=== PATIENT | male | born 1990 | race American Indian/Alaskan Native ===

== ENCOUNTER 2022-05-16 16:40 | Inpatient (IN) | payer OTHER ==
[2022-05-16] MEDS ORDERED: MORPHINE 4 MG/1 ML INJ IV ONE ×3 (17:40→21:48)
[2022-05-16] MEDS ORDERED: SODIUM CHLORIDE 0.9% 500 ML 500 ML IV ONE (17:40)
[2022-05-16] MEDS ORDERED: ONDANSETRON 4 MG/2 ML INJ IV ONE (17:40)
--- NOTE | 2022-05-16 17:40 | XRay Report ---
CHEST 2 VIEWS INDICATION / CLINICAL INFORMATION: Chest Pain. COMPARISON: None available. FINDINGS: SUPPORT DEVICES: None. HEART / MEDIASTINUM: No significant abnormality. LUNGS / PLEURA: No significant pulmonary or pleural abnormality. No pneumothorax. ADDITIONAL FINDINGS: No significant additional findings. IMPRESSION: 1. No acute findings. Signer Name: Aubrey Tinoco MD Signed: 05/16/2022 5:36 PM Workstation Name: [id number]
--- NOTE | 2022-05-16 17:43 | Emergency Department Report ---
ED Chest Pain HPI - General Chief Complaint: Chest Pain Stated Complaint: CHEST PAIN Time Seen by Provider: 05/16/22 17:08 Source: patient Mode of arrival: Ambulatory Limitations: No Limitations - History of Present Illness Initial Comments: 31-year-old male with no significant past medical surgical history presents to the hospital complaining of mid sharp chest pain, nausea, vomiting, and diarrhea for "a few days". Patient having active nausea and vomiting with diaphoresis at time of my evaluation. Chest pain is moderate at this time. Patient complains of mild generalized abdominal pain. Pt denies headache. He denies fever and presents significantly hypertensive - Related Data Allergies Allergy/AdvReac Type Severity Reaction Status Date / Time haloperidol [From Haldol] Allergy Unknown Verified 05/16/22 17:56 Heart Score - HEART Score History: Slightly suspicious EKG: Normal Age: < 45 Risk factors: 1-2 risk factors Troponin: < normal limit HEART Score: 1 - EKG Read Time Time EKG Completed: 18:13 EKG Read Time: 18:15 ED Review of Systems ROS: Stated complaint: CHEST PAIN Other details as noted in HPI Comment: All other systems reviewed and negative ED Past Medical Hx - Past Medical History Previous Medical History?: No - Surgical History Past Surgical History?: No ED Physical Exam - General Limitations: No Limitations - Other Other exam information: General: ill appearing Head: Atraumatic Eyes: normal appearance ENT: Moist mucous membranes Neck: Normal appearance, no midline tenderness Chest: Clear to auscultation bilaterally CV: Regular rate and rhythm Abdomen: Soft, normal bowel sounds, mild generalized tenderness. active vomiting Back: Normal inspection Extremity: Normal inspection, full range of motion Neuro: Alert O x 3, no facial asymmetry, speech clear, no gross motor sensory deficit Skin: Diaphoresis ED Course Vital Signs 05/16/22 05/16/22 05/16/22 16:51 17:51 18:28 Temperature 98.5 F 97.8 F Pulse Rate 86 79 75 Respiratory 18 20 Rate Blood Pressure 214/143 197/149 Blood Pressure 214/149 214/143 [Left] O2 Sat by Pulse 99 99 Oximetry 05/16/22 05/16/22 05/16/22 19:15 20:15 20:30 Temperature Pulse Rate 80 79 81 Respiratory 18 18 18 Rate Blood Pressure Blood Pressure 216/142 249/160 214/142 [Left] O2 Sat by Pulse 99 98 98 Oximetry 05/16/22 05/16/22 05/16/22 21:10 21:40 22:15 Temperature Pulse Rate 86 86 80 Respiratory 18 18 18 Rate Blood Pressure Blood Pressure 188/130 203/134 202/140 [Left] O2 Sat by Pulse 98 98 98 Oximetry 05/16/22 05/16/22 05/16/22 22:20 22:25 22:30 Temperature Pulse Rate 84 80 93 H Respiratory 18 18 18 Rate Blood Pressure Blood Pressure 202/135 208/130 188/107 [Left] O2 Sat by Pulse 98 98 99 Oximetry 05/16/22 05/16/22 05/16/22 22:35 22:40 22:45 Temperature Pulse Rate 93 H 96 H 95 H Respiratory 18 18 18 Rate Blood Pressure Blood Pressure 170/98 159/105 166/108 [Left] O2 Sat by Pulse 99 98 98 Oximetry 05/16/22 05/16/22 05/16/22 22:50 22:55 22:58 Temperature Pulse Rate 97 H 98 H 101 H Respiratory 18 18 18 Rate Blood Pressure Blood Pressure 156/99 150/100 171/111 [Left] O2 Sat by Pulse 98 98 99 Oximetry 05/16/22 05/16/22 05/17/22 23:07 23:30 00:00 Temperature Pulse Rate 103 H 106 H 132 H Respiratory 18 18 18 Rate Blood Pressure Blood Pressure 184/125 197/132 212/131 [Left] O2 Sat by Pulse 99 99 99 Oximetry 05/17/22 05/17/22 05/17/22 00:35 00:50 01:00 Temperature Pulse Rate 140 H 130 H 134 H Respiratory 18 18 18 Rate Blood Pressure Blood Pressure 219/128 206/134 190/130 [Left] O2 Sat by Pulse 99 99 99 Oximetry 05/17/22 05/17/22 05/17/22 01:10 01:25 01:45 Temperature Pulse Rate 137 H 131 H 121 H Respiratory 18 18 18 Rate Blood Pressure Blood Pressure 164/111 222/154 193/130 [Left] O2 Sat by Pulse 99 99 100 Oximetry 05/17/22 05/17/22 05/17/22 02:00 02:15 02:20 Temperature Pulse Rate 116 H 109 H 110 H Respiratory 18 18 18 Rate Blood Pressure Blood Pressure 193/121 182/111 195/120 [Left] O2 Sat by Pulse 99 99 100 Oximetry 05/17/22 05/17/22 05/17/22 02:30 02:45 06:30 Temperature Pulse Rate 105 H 101 H 101 H Respiratory 18 18 18 Rate Blood Pressure Blood Pressure 191/109 191/105 165/101 [Left] O2 Sat by Pulse 99 99 99 Oximetry 05/17/22 05/17/22 05/17/22 06:42 07:58 08:00 Temperature Pulse Rate 99 H 93 H 96 H Respiratory 18 21 19 Rate Blood Pressure Blood Pressure 151/105 [Left] O2 Sat by Pulse 99 95 99 Oximetry 05/17/22 05/17/22 05/17/22 08:16 08:38 08:45 Temperature Pulse Rate 115 H 99 H 94 H Respiratory 15 19 24 Rate Blood Pressure 160/105 175/107 Blood Pressure [Left] O2 Sat by Pulse 97 92 90 Oximetry 05/17/22 05/17/22 05/17/22 09:01 09:15 09:31 Temperature Pulse Rate 97 H 97 H Respiratory 17 20 Rate Blood Pressure 179/114 176/118 188/122 Blood Pressure [Left] O2 Sat by Pulse 92 90 95 Oximetry 05/17/22 05/17/22 05/17/22 09:45 10:01 10:15 Temperature Pulse Rate Respiratory Rate Blood Pressure 158/112 174/114 181/136 Blood Pressure [Left] O2 Sat by Pulse 90 92 95 Oximetry 05/17/22 05/17/22 05/17/22 10:31 10:45 11:01 Temperature Pulse Rate Respiratory Rate Blood Pressure 143/104 159/108 167/114 Blood Pressure [Left] O2 Sat by Pulse 85 95 95 Oximetry 05/17/22 05/17/22 05/17/22 11:15 11:31 11:45 Temperature Pulse Rate Respiratory Rate Blood Pressure 166/119 157/103 174/113 Blood Pressure [Left] O2 Sat by Pulse 95 96 96 Oximetry 05/17/22 05/17/22 05/17/22 12:13 12:15 12:31 Temperature Pulse Rate Respiratory 10 L 17 15 Rate Blood Pressure Blood Pressure [Left] O2 Sat by Pulse 96 94 97 Oximetry 05/17/22 05/17/22 05/17/22 12:45 13:01 13:15 Temperature Pulse Rate 84 Respiratory 24 8 L 19 Rate Blood Pressure 212/140 212/140 179/110 Blood Pressure [Left] O2 Sat by Pulse 96 95 95 Oximetry 05/17/22 05/17/22 05/17/22 13:31 13:45 14:01 Temperature Pulse Rate 85 82 85 Respiratory 21 18 15 Rate Blood Pressure 148/92 152/102 152/97 Blood Pressure [Left] O2 Sat by Pulse 95 92 93 Oximetry 05/17/22 05/17/22 05/17/22 14:15 14:31 16:01 Temperature Pulse Rate 87 85 Respiratory 22 22 Rate Blood Pressure 158/104 172/114 220/150 Blood Pressure [Left] O2 Sat by Pulse 94 95 93 Oximetry 05/17/22 05/17/22 05/17/22 16:15 16:31 16:45 Temperature Pulse Rate Respiratory Rate Blood Pressure 195/142 206/137 204/142 Blood Pressure [Left] O2 Sat by Pulse 97 94 90 Oximetry 05/17/22 05/17/22 05/17/22 17:01 17:15 17:31 Temperature Pulse Rate Respiratory Rate Blood Pressure 183/130 183/130 173/120 Blood Pressure [Left] O2 Sat by Pulse 92 97 94 Oximetry 05/17/22 05/17/22 05/17/22 17:45 18:01 18:15 Temperature Pulse Rate Respiratory Rate Blood Pressure 205/146 234/156 197/150 Blood Pressure [Left] O2 Sat by Pulse 93 97 93 Oximetry 05/17/22 05/17/22 05/17/22 18:31 18:45 19:01 Temperature Pulse Rate Respiratory Rate Blood Pressure 214/150 208/155 201/155 Blood Pressure [Left] O2 Sat by Pulse 95 90 93 Oximetry 05/17/22 05/17/22 05/17/22 19:15 19:31 19:36 Temperature 98.5 F Pulse Rate 78 75 Respiratory 26 H 14 Rate Blood Pressure 203/150 152/99 Blood Pressure 152/99 [Left] O2 Sat by Pulse 95 91 98 Oximetry 05/17/22 05/17/22 05/17/22 19:45 20:01 20:15 Temperature Pulse Rate 82 78 76 Respiratory 25 H 34 H 29 H Rate Blood Pressure 174/116 176/135 174/116 Blood Pressure [Left] O2 Sat by Pulse 94 94 95 Oximetry 05/17/22 05/17/22 05/17/22 20:31 20:45 21:01 Temperature Pulse Rate 80 89 80 Respiratory 27 H 11 L 10 L Rate Blood Pressure 195/141 196/138 193/138 Blood Pressure [Left] O2 Sat by Pulse 96 98 93 Oximetry 05/17/22 05/17/22 21:15 21:31 Temperature Pulse Rate 80 80 Respiratory 23 24 Rate Blood Pressure 193/138 193/138 Blood Pressure [Left] O2 Sat by Pulse 89 94 Oximetry ED Medical Decision Making - Lab Data Result diagrams: 05/17/22 05:25 05/17/22 05:25 Lab Results 05/16/22 05/16/22 05/16/22 Range/Units 16:51 17:25 17:25 WBC 8.9 (4.5-11.0) K/mm3 RBC 5.96 H (3.65-5.03) M/mm3 Hgb 16.8 H (11.8-15.2) gm/dl Hct 53.0 H (35.5-45.6) % MCV 89 (84-94) fl MCH 28 (28-32) pg MCHC 32 (32-34) % RDW 14.5 (13.2-15.2) % Plt Count 322 (140-440) K/mm3 Lymph % (Auto) 8.9 L (13.4-35.0) % [place] % (Auto) 3.0 (0.0-7.3) % Eos % (Auto) 0.0 (0.0-4.3) % Baso % (Auto) 0.4 (0.0-1.8) % Lymph # (Auto) 0.8 L (1.2-5.4) K/mm3 [place] # (Auto) 0.3 (0.0-0.8) K/mm3 Eos # (Auto) 0.0 (0.0-0.4) K/mm3 Baso # (Auto) 0.0 (0.0-0.1) K/mm3 Seg Neutrophils % 87.7 H (40.0-70.0) % Seg Neutrophils # 7.8 H (1.8-7.7) K/mm3 PT 13.0 (12.2-14.9) Sec. INR 0.89 (0.87-1.13) APTT 25.9 (24.2-36.6) Sec. Sodium (137-145) mmol/L Potassium (3.6-5.0) mmol/L Chloride (98-107) mmol/L Carbon Dioxide (22-30) mmol/L Anion Gap mmol/L BUN (9-20) mg/dL Creatinine (0.8-1.3) mg/dL Estimated GFR ml/min BUN/Creatinine Ratio % Glucose (75-100) mg/dL POC Glucose 154 H (70-105) mg/dL Calcium (8.4-10.2) mg/dL Total Bilirubin (0.1-1.2) mg/dL AST (5-40) units/L ALT (7-56) units/L Alkaline Phosphatase (35-129) units/L Troponin T (0.00-0.029) ng/mL Total Protein (6.3-8.2) g/dL Albumin (3.9-5) g/dL Albumin/Globulin Ratio % 05/16/22 Range/Units 17:25 WBC (4.5-11.0) K/mm3 RBC (3.65-5.03) M/mm3 Hgb (11.8-15.2) gm/dl Hct (35.5-45.6) % MCV (84-94) fl MCH (28-32) pg MCHC (32-34) % RDW (13.2-15.2) % Plt Count (140-440) K/mm3 Lymph % (Auto) (13.4-35.0) % [place] % (Auto) (0.0-7.3) % Eos % (Auto) (0.0-4.3) % Baso % (Auto) (0.0-1.8) % Lymph # (Auto) (1.2-5.4) K/mm3 [place] # (Auto) (0.0-0.8) K/mm3 Eos # (Auto) (0.0-0.4) K/mm3 Baso # (Auto) (0.0-0.1) K/mm3 Seg Neutrophils % (40.0-70.0) % Seg Neutrophils # (1.8-7.7) K/mm3 PT (12.2-14.9) Sec. INR (0.87-1.13) APTT (24.2-36.6) Sec. Sodium 143 (137-145) mmol/L Potassium 4.3 (3.6-5.0) mmol/L Chloride 99.4 (98-107) mmol/L Carbon Dioxide 22 (22-30) mmol/L Anion Gap 26 mmol/L BUN 11 (9-20) mg/dL Creatinine 0.8 (0.8-1.3) mg/dL Estimated GFR > 60 ml/min BUN/Creatinine Ratio 14 % Glucose 151 H (75-100) mg/dL POC Glucose (70-105) mg/dL Calcium 10.5 H (8.4-10.2) mg/dL Total Bilirubin 0.30 (0.1-1.2) mg/dL AST 21 (5-40) units/L ALT 21 (7-56) units/L Alkaline Phosphatase 93 (35-129) units/L Troponin T < 0.010 (0.00-0.029) ng/mL Total Protein 8.3 H (6.3-8.2) g/dL Albumin 5.7 H (3.9-5) g/dL Albumin/Globulin Ratio 2.2 % - EKG Data -: EKG Interpreted by [place] EKG shows normal: sinus rhythm, ST-T waves (no stemi) Rate: normal - EKG Data When compared to previous EKG there are: previous EKG unavailable - Radiology Data Radiology results: report reviewed CHEST 2 VIEWS INDICATION / CLINICAL INFORMATION: Chest Pain. COMPARISON: None available. FINDINGS: SUPPORT DEVICES: None. HEART / MEDIASTINUM: No significant abnormality. LUNGS / PLEURA: No significant pulmonary or pleural abnormality. No pneumothorax. ADDITIONAL FINDINGS: No significant additional findings. IMPRESSION: 1. No acute findings. CTA CHEST WITH CONTRAST INDICATION / CLINICAL INFORMATION: chest pain,htn, n,v, diarrhea. TECHNIQUE: Axial CT images were obtained through the chest after injection of 100 IV contrast. 3 plane MIP and/or 3D reconstructions were produced. All CT scans at this location are performed using CT dose reduction for ALARA by means of automated exposure control. COMPARISON: Chest radiograph same day. FINDINGS: PULMONARY EMBOLUS: None. THORACIC AORTA: No significant abnormality. HEART: No significant abnormality. CORONARY ARTERY CALCIFICATION: Absent -- None. MEDIASTINUM / CARISSA: Small volume soft tissue density within the anterior superior mediastinum statistically is most likely reflective of a small component of residual thymus. Small hiatal hernia with small volume distal esophageal fluid with mild thickening. PLEURA: No pleural effusion. No pneumothorax. LUNGS: No acute air space or interstitial disease. ADDITIONAL FINDINGS: None. UPPER ABDOMEN: No acute findings. SKELETAL STRUCTURES: No significant osseous abnormality. IMPRESSION: 1. No CT evidence for PTE, or acute aortic abnormality. 2. Small hiatal hernia with features supportive of mild esophageal reflux. 3. Small volume soft tissue density anterior superior mediastinum most likely reflective of a small component of residual thymus, mild nonspecific lymphadenopathy secondarily considered. CT ABDOMEN AND PELVIS WITH CONTRAST INDICATION / CLINICAL INFORMATION: chest pain,htn, n,v, diarrhea. TECHNIQUE: Axial CT images were obtained through the abdomen and pelvis after IV contrast. All CT scans at this location are performed using CT dose reduction for ALARA by means of automated exposure control. COMPARISON: None available. FINDINGS: LIVER: No significant abnormality. GALLBLADDER: No significant abnormality. BILE DUCTS: No significant abnormality. PANCREAS: No significant abnormality. SPLEEN: No significant abnormality. ADRENALS: No significant abnormality. RIGHT KIDNEY / URETER: No significant abnormality. LEFT KIDNEY / URETER: No significant abnormality. STOMACH / SMALL BOWEL: Small hiatal hernia with trace distal esophageal fluid. COLON: Mild mural thickening involving the transverse colon potentially accentuated by only partial distention. APPENDIX: No significant abnormality. PERITONEUM: No free fluid. No free air. No fluid collection. LYMPH NODES: No significant adenopathy. AORTA / ARTERIES: No significant abnormality. IVC / VEINS: No significant abnormality. URINARY BLADDER: No significant abnormality. REPRODUCTIVE ORGANS: No significant abnormality. ADDITIONAL FINDINGS: None. SKELETAL SYSTEM: No significant abnormality. IMPRESSION: 1. Possible mild transverse colitis, potentially artifactual the basis only partial distention. No complicating features. 2. Small hernia with features supportive of mild gastroesophageal reflux. - Medical Decision Making 31-year-old male with no known past medical history presents to the hospital with significant hypertension, chest pain, abdominal pain, nausea, and vomiting. Chest pain might be reflux related however, patient has persistent elevation in blood pressure despite IV pain medication and BP medication. Stability of psychiatric history given history of allergy to Haldol. Given that he has received Haldol in the past (listed as an allergy) I suspect patient may have some underlying psychiatric disorder. Initial troponin negative without findings of ST elevation [place]. Patient will be admitted to the hospital for hypertensive emergency (HTN + CP). At time of disposition ED work-up did not reveal NSTEMI, ST elevation [place], aortic dissection, pulmonary embolism, or acute surgical abdomen Pt continues to deny headache. cardene drip ordered Critical Care Time: Yes Critical care time in (mins) excluding proc time.: 35 Critical care attestation.: If time is entered above; I have spent that time in minutes in the direct care of this critically ill patient, excluding procedure time. Critical Care Time: 35 Minutes of critical care time excluding procedures were used in the care of the patient. I immediately evaluated patient once he was brought back to the main ED. Patient required multiple medicine intervention for pain relief and blood pressure management. Patient requiring Cardene infusion for blood pressure control. ED Disposition Clinical Impression: Chest pain, Hypertensive emergency, Nausea and vomiting, Hiatal hernia, GERD (gastroesophageal reflux disease) Disposition: ADMITTED INPATIENT Is pt being admited?: Yes Condition: Stable Time of Disposition: 21:37 (Dr. Ceron)
[2022-05-16 18:41] LABS: Basophils % (Auto) 0.4 % (0.0-1.8); Hemoglobin 16.8 gm/dl (11.8-15.2); Lymphocytes # (Auto) 0.8 K/mm3 (1.2-5.4); Lymphocytes % (Auto) 8.9 % (13.4-35.0); Mean Corpuscular HGB Conc 32 % (32-34); Mean Corpuscular Volume 89 fl (84-94); Monocytes # (Auto) 0.3 K/mm3 (0.0-0.8); Platelet Count 322 K/mm3 (140-440); Red Blood Count 5.96 M/mm3 (3.65-5.03); Red Cell Distribution Width 14.5 % (13.2-15.2)
[2022-05-16 18:49] LABS: INR 0.89 (0.87-1.13)
[2022-05-16 18:50] LABS: Partial Thromboplastin Time 25.9 Sec. (24.2-36.6)
[2022-05-16 19:02] LABS: Alanine Aminotransferase 21 units/L (7-56); Albumin 5.7 g/dL (3.9-5); BUN/Creatinine Ratio 14; Blood Urea Nitrogen 11 mg/dL (9-20); Calcium 10.5 mg/dL (8.4-10.2); Hemolysis Index 4
--- NOTE | 2022-05-16 21:14 | Cat Scan Report ---
CTA CHEST WITH CONTRAST INDICATION / CLINICAL INFORMATION: chest pain,htn, n,v, diarrhea. TECHNIQUE: Axial CT images were obtained through the chest after injection of 100 IV contrast. 3 plan e MIP and/or 3D reconstructions were produced. All CT scans at this location are performed using CT d ose reduction for ALARA by means of automated exposure control. COMPARISON: Chest radiograph same day. FINDINGS: PULMONARY EMBOLUS: None. THORACIC AORTA: No significant abnormality. HEART: No significant abnormality. CORONARY ARTERY CALCIFICATION: Absent -- None. MEDIASTINUM / CARISSA: Small volume soft tissue density within the anterior superior mediastinum statist ically is most likely reflective of a small component of residual thymus. Small hiatal hernia with sm all volume distal esophageal fluid with mild thickening. PLEURA: No pleural effusion. No pneumothorax. LUNGS: No acute air space or interstitial disease. ADDITIONAL FINDINGS: None. UPPER ABDOMEN: No acute findings. SKELETAL STRUCTURES: No significant osseous abnormality. IMPRESSION: 1. No CT evidence for PTE, or acute aortic abnormality. 2. Small hiatal hernia with features supportive of mild esophageal reflux. 3. Small volume soft tissue density anterior superior mediastinum most likely reflective of a small c omponent of residual thymus, mild nonspecific lymphadenopathy secondarily considered. CT ABDOMEN AND PELVIS WITH CONTRAST INDICATION / CLINICAL INFORMATION: chest pain,htn, n,v, diarrhea. TECHNIQUE: Axial CT images were obtained through the abdomen and pelvis after IV contrast. All CT sc ans at this location are performed using CT dose reduction for ALARA by means of automated exposure c ontrol. COMPARISON: None available. FINDINGS: LIVER: No significant abnormality. GALLBLADDER: No significant abnormality. BILE DUCTS: No significant abnormality. PANCREAS: No significant abnormality. SPLEEN: No significant abnormality. ADRENALS: No significant abnormality. RIGHT KIDNEY / URETER: No significant abnormality. LEFT KIDNEY / URETER: No significant abnormality. STOMACH / SMALL BOWEL: Small hiatal hernia with trace distal esophageal fluid. COLON: Mild mural thickening involving the transverse colon potentially accentuated by only partial d istention. APPENDIX: No significant abnormality. PERITONEUM: No free fluid. No free air. No fluid collection. LYMPH NODES: No significant adenopathy. AORTA / ARTERIES: No significant abnormality. IVC / VEINS: No significant abnormality. URINARY BLADDER: No significant abnormality. REPRODUCTIVE ORGANS: No significant abnormality. ADDITIONAL FINDINGS: None. SKELETAL SYSTEM: No significant abnormality. IMPRESSION: 1. Possible mild transverse colitis, potentially artifactual the basis only partial distention. No co mplicating features. 2. Small hernia with features supportive of mild gastroesophageal reflux. Signer Name: Gisell Harp MD Signed: 05/16/2022 9:10 PM Workstation Name: [id number]
[2022-05-16] MEDS ORDERED: FAMOTIDINE 20 MG/2 ML INJ IV ONE (21:27)
[2022-05-16] MEDS ORDERED: ASPIRIN 325 MG TAB PO ONE (21:34)
[2022-05-16] MEDS ORDERED: ACETAMINOPHEN 325 MG TAB PO PRN ×3 (21:57→23:03)
[2022-05-16] MEDS ORDERED: niCARdipine DRIP 40 MG/200 ML BAG IV ONE (21:58)
[2022-05-16] MEDS ORDERED: niCARdipine 50 MG in SODIUM CHLORIDE 0.9% 250ML 230 ML IV SCH (22:00)
[2022-05-16] MEDS ORDERED: traMADol 50 MG TAB PO PRN (22:57)
[2022-05-16] MEDS ORDERED: MORPHINE 2 MG/1 ML INJ IV PRN ×2 (23:03)
[2022-05-16] MEDS ORDERED: NITROGLYCERIN 0.4 MG TAB SUBL SL PRN (23:03)
[2022-05-16] MEDS ORDERED: MAGNESIUM HYDROXIDE (MOM) ORAL LIQD UDC PO PRN (23:03)
--- NOTE | 2022-05-16 23:12 | History and Physical Report ---
History of Present Illness Date of examination: 05/16/22 Date of admission: 05/16/2022 Chief complaint: Chest Pain History of present illness: 31-year-old -[place] male with no significant past medical history presenting to the emergency room today complaining of chest pain. Chest pain is said to be substernal and sharp. He has had associated nausea and vomiting and occasional diarrhea over the past few days. Patient denies any headache or dizziness. Has been diaphoretic. Denies any fever or chills, denies any hematuria or dysuria. Patient denies any illicit drug use. Upon arrival in the emergency room patient was found to be diaphoretic and act ively vomiting. Blood pressure was found to be elevated with systolic in the 200s and diastolic in the low 100s. Patient was therefore placed on Cardene drip. Work-up in the emergency room today, chest x-ray was unremarkable. CT angiogram chest was negative for pulmonary embolism. Patient has small hiatal hernia features suggestive of mild esophageal reflux. Urinalysis was unremarkable. UDS was positive for marijuana opiates. Patient continued to have progressive chest pain while in the emergency room. He became diaphoretic and was in sinus tachycardia. Patient subsequently switched to nitroglycerin drip. Past History Past Medical History: No medical history Past Surgical History: No surgical history Social history: no significant social history Family history: no significant family history Medications and Allergies Allergies Allergy/AdvReac Type Severity Reaction Status Date / Time haloperidol [From Haldol] Allergy Unknown Verified 05/16/22 17:56 Active Meds: Active Medications Acetaminophen (Acetaminophen 325 Mg Tab) 650 mg PO Q6H PRN PRN Reason: Pain MILD(1-3)/Fever >100.5/[place] Acetaminophen (Acetaminophen 325 Mg Tab) 650 mg PO Q6H PRN PRN Reason: Pain, Mild (1-3) Acetaminophen (Acetaminophen 325 Mg Tab) 650 mg PO Q6H PRN PRN Reason: Pain MILD(1-3)/Fever >100.5/[place] Aspirin (Aspirin Ec 325 Mg Tab) 325 mg PO QDAY PAULINA Nicardipine HCl 50 mg/ Sodium (Chloride) 250 mls @ 25 mls/hr IV TITR PAULINA; Protocol Last Admin: 05/16/22 22:00 Dose: 5 mg/hr, 25 mls/hr Nicardipine/Sodium Chloride (Cardene Drip 40 Mg/200 Ml) 40 mg in 200 mls @ 25 mls/hr IV ONCE ONE; Protocol Stop: 05/17/22 05:57 Magnesium Hydroxide (Magnesium Hydroxide (Mom) Oral Liqd Udc) 30 ml PO Q4H PRN PRN Reason: Constipation Morphine Sulfate (Morphine 2 Mg/1 Ml Inj) 2 mg IV Q4H PRN PRN Reason: Pain, Moderate (4-6) Morphine Sulfate (Morphine 2 Mg/1 Ml Inj) 2 mg IV Q4H PRN PRN Reason: Pain, Moderate (4-6) Morphine Sulfate (Morphine 4 Mg/1 Ml Inj) 4 mg IV Q4H PRN PRN Reason: Pain , Severe (7-10) Morphine Sulfate (Morphine 4 Mg/1 Ml Inj) 2 mg IV Q5MIN PRN PRN Reason: Chest Pain unrelieved by NTG Nitroglycerin (Nitroglycerin 0.4 Mg Tab Subl) 0.4 mg SL Q5M PRN PRN Reason: Chest Pain Sodium Chloride (Sodium Chloride 0.9% 10 Ml Flush Syringe) 10 ml IV BID PAULINA Sodium Chloride (Sodium Chloride 0.9% 10 Ml Flush Syringe) 10 ml IV PRN PRN PRN Reason: LINE FLUSH Sodium Chloride (Sodium Chloride 0.9% 10 Ml Flush Syringe) 10 ml IV BID PAULINA Sodium Chloride (Sodium Chloride 0.9% 10 Ml Flush Syringe) 10 ml IV PRN PRN PRN Reason: LINE FLUSH Sodium Chloride (Sodium Chloride 0.9% 10 Ml Flush Syringe) 10 ml IV PRN PRN PRN Reason: LINE FLUSH Tramadol HCl (Tramadol 50 Mg Tab) 50 mg PO Q6H PRN PRN Reason: Pain, Moderate (4-6) Review of Systems Constitutional: no fever, no chills Ears, nose, mouth and throat: no nasal congestion, no sore throat Cardiovascular: chest pain, no palpitations Respiratory: no cough, no shortness of breath Gastrointestinal: nausea, vomiting, diarrhea Genitourinary Male: no dysuria, no hematuria, no flank pain Musculoskeletal: no neck pain, no low back pain Integumentary: no rash, no pruritis Neurological: no headaches, no confusion Psychiatric: no anxiety, no depression Endocrine: no polyphagia, no polydipsia, no polyuria, no nocturia Exam - Constitutional Vitals: Temp Pulse Resp BP Pulse Ox 97.8 F 75 20 197/149 99 05/16/22 17:51 05/16/22 18:28 05/16/22 17:51 05/16/22 18:28 05/16/22 17:51 General appearance: Present: no acute distress, well-nourished - EENT Eyes: Present: PERRL, EOM intact. Absent: scleral icterus ENT: hearing intact, clear oral mucosa, dentition normal - Neck Neck: Present: supple, normal ROM - Respiratory Respiratory effort: normal Respiratory: bilateral: CTA - Cardiovascular Rhythm: regular Heart Sounds: Present: S1 & S2. Absent: gallop, systolic murmur, diastolic murmur, rub, click - Extremities Extremities: no ischemia, pulses intact, pulses symmetrical, No edema, normal temperature, normal color, Full ROM Peripheral Pulses: within normal limits - Abdominal General gastrointestinal: Present: soft, non-tender, non-distended, normal bowel sounds. Absent: mass - Integumentary Integumentary: Present: clear, warm, dry, normal turgor. Absent: rash - Musculoskeletal Musculoskeletal: strength equal bilaterally - Psychiatric Psychiatric: appropriate mood/affect, intact judgment & insight, memory intact, cooperative - Neurologic Neurologic: CNII-XII intact, no focal deficits, moves all extremities HEART Score - HEART Score Troponin: Troponin T < 0.010 ng/mL (0.00-0.029) 05/16/22 21:43 Results - Labs CBC & Chem 7: 05/16/22 17:25 05/16/22 23:36 Labs: Abnormal lab results 05/16/22 05/16/22 05/16/22 Range/Units 16:51 17:25 17:25 RBC 5.96 H (3.65-5.03) M/mm3 Hgb 16.8 H (11.8-15.2) gm/dl Hct 53.0 H (35.5-45.6) % Lymph % (Auto) 8.9 L (13.4-35.0) % Lymph # (Auto) 0.8 L (1.2-5.4) K/mm3 Seg Neutrophils % 87.7 H (40.0-70.0) % Seg Neutrophils # 7.8 H (1.8-7.7) K/mm3 Glucose 151 H (75-100) mg/dL POC Glucose 154 H (70-105) mg/dL Calcium 10.5 H (8.4-10.2) mg/dL Total Protein 8.3 H (6.3-8.2) g/dL Albumin 5.7 H (3.9-5) g/dL Assessment and Plan Assessment: 1. Chest pain 2. Hypertensive emergency 3. Nausea and vomiting-possibly secondary to acid reflux Plan: 1. Patient admitted into the intensive care unit and placed on nitroglycerin drip. 2. We will check serial cardiac enzymes. 3. Patient placed on aspirin, sublingual nitroglycerin and IV morphine as needed for chest pain. 4. Consult placed to cardiology for evaluation and recommendations. 5. Meanwhile will schedule for echocardiogram and stress test. DVT Prophylaxis: Subcutaneous heparin Code Status: Full Code.
[2022-05-16] MEDS ORDERED: SODIUM CHLORIDE 0.9% 1000 ML 1,000 ML ONE ×2 (23:28)
[2022-05-17 00:23] LABS: BUN/Creatinine Ratio 11; Blood Urea Nitrogen 9 mg/dL (9-20); Calcium 10.1 mg/dL (8.4-10.2); Hemolysis Index 134
[2022-05-17 00:48] LABS: Color,Urine Colorless (Yellow)
[2022-05-17] MEDS ORDERED: NITROGLYCERIN DRIP 50 MG/250 ML BOTTLE ONE (01:03)
[2022-05-17 01:10] LABS: Amphetamine Screen,Urine PRESUMPTIVE NEGATIVE; Benzodiazepines Screen,Urine PRESUMPTIVE NEGATIVE; Cannabinoid Screen,Urine PRESUMPTIVE POSITIVE; Cocaine Screen,Urine PRESUMPTIVE NEGATIVE; Methadone Screen,Urine PRESUMPTIVE NEGATIVE; Opiate Screen,Urine PRESUMPTIVE POSITIVE
[2022-05-17] MEDS ORDERED: SODIUM CHLORIDE 0.9% 1000 ML 1,000 ML ONE (01:54)
[2022-05-17] MEDS ORDERED: NITROGLYCERIN DRIP 50 MG/250 ML BOTTLE IV ONE (02:12)
[2022-05-17 06:04] LABS: Hematocrit 51.2 % (35.5-45.6); Hemoglobin 16.3 gm/dl (11.8-15.2); Mean Corpuscular HGB Conc 32 % (32-34); Mean Corpuscular Volume 88 fl (84-94); Platelet Count 303 K/mm3 (140-440); Red Blood Count 5.83 M/mm3 (3.65-5.03); Red Cell Distribution Width 14.5 % (13.2-15.2)
[2022-05-17 06:14] LABS: BUN/Creatinine Ratio 11; Blood Urea Nitrogen 9 mg/dL (9-20); Calcium 8.9 mg/dL (8.4-10.2); Hemolysis Index 13
[2022-05-17 06:52] LABS: Basophils % (Manual) 0 % (0.0-1.8); Eosinophils % (Manual) 0 % (0.0-4.3); Platelet Estimate Consistent w Auto; Total Cells Counted 100
[2022-05-17] MEDS: MORPHINE 4 MG/1 ML INJ IV PRN ×3 (08:30→21:03)
--- NOTE | 2022-05-17 09:39 | Consultation ---
History of Present Illness Consult date: 05/17/22 Reason for consult: cough, chest pain History of present illness: 31-year-old -[place] male with no significant past medical history pres enting to the emergency room today complaining of chest pain. Chest pain is said to be substernal and sharp. He has had associated nausea and vomiting and occasional diarrhea over the past few days. Patient denies any headache or dizziness. Has been diaphoretic. Denies any fever or chills, denies any hematuria or dysuria. Patient denies any illicit drug use. Upon arrival in the emergency room patient was found to be diaphoretic and actively vomiting. Blood pressure was found to be elevated with systolic in the 200s and diastolic in the low 100s. Patient was therefore placed on Cardene drip. Work-up in the emergency room today, chest x-ray was unremarkable. CT angiogram chest was negative for pulmonary embolism. Patient has small hiatal hernia features suggestive of mild esophageal reflux. Urinalysis was unremarkable. UDS was positive for marijuana opiates. Patient has history of smoking 1/3 rd pack a day x 7 years. Also smokes Marijuana. Denies alcohol abuse. Works as [employer] Not . Has no children. Allergic to haloperidol. Patient continued to have progressive chest pain while in the emergency room. He became diaphoretic and was in sinus tachycardia. Patient subsequently switched to nitroglycerin drip. Patient awake. Resting on room air. O2 saturation 96%. Patient appears tired. No acute respiratory distress. Patient afebrile. Has leukocytosis. Blood pressure 174/113, Pulse 94, Respirations 24. Patients Tropinin, lipase. tsh levels normal. Patients HGB 16.3 , HCT 51.2 slightly elevated likely from dehydration from nausea , vomiting. Chest xray obtained 05/16/22 reported No significant pulmonary or pleural abnormality. No pneumothorax. Angio CT of chest 05/16/[address] evidence for PTE, or acute aortic abnormality. Small hiatal hernia with features supportive of mild esophageal reflux. Small volume soft tissue density anterior superior mediastinum most likely reflective of a small component of residual thymus, mild nonspecific lymphadenopathy secondarily considered. Patient is on Nitroglycerin drip. Past History Past Medical History: No medical history Past Surgical History: No surgical history Social history: no significant social history Family history: no significant family history Medications and Allergies Allergies Allergy/AdvReac Type Severity Reaction Status Date / Time haloperidol [From Haldol] Allergy Unknown Verified 05/16/22 17:56 Active Meds: Active Medications Acetaminophen (Acetaminophen 325 Mg Tab) 650 mg PO Q6H PRN PRN Reason: Pain MILD(1-3)/Fever >100.5/[place] Aspirin (Aspirin Ec 325 Mg Tab) 325 mg PO QDAY PAULINA Nicardipine HCl 50 mg/ Sodium (Chloride) 250 mls @ 25 mls/hr IV TITR PAULINA; Protocol Last Titration: 05/17/22 01:00 Dose: 0 mg/hr, 0 mls/hr Nitroglycerin/Dextrose (Tridil Drip 50mg/250ml) 50 mg in 250 mls @ 3 mls/hr IV TITR ONE; Protocol Stop: 05/20/22 13:31 Last Titration: 05/17/22 09:19 Dose: 50 mcg/min, 15 mls/hr Magnesium Hydroxide (Magnesium Hydroxide (Mom) Oral Liqd Udc) 30 ml PO Q4H PRN PRN Reason: Constipation Morphine Sulfate (Morphine 2 Mg/1 Ml Inj) 2 mg IV Q4H PRN PRN Reason: Pain, Moderate (4-6) Morphine Sulfate (Morphine 4 Mg/1 Ml Inj) 4 mg IV Q4H PRN PRN Reason: Pain , Severe (7-10) Morphine Sulfate (Morphine 2 Mg/1 Ml Inj) 2 mg IV Q5MIN PRN PRN Reason: Chest Pain unrelieved by NTG Nitroglycerin (Nitroglycerin 0.4 Mg Tab Subl) 0.4 mg SL Q5M PRN PRN Reason: Chest Pain Last Admin: 05/17/22 00:30 Dose: 0.4 mg Sodium Chloride (Sodium Chloride 0.9% 10 Ml Flush Syringe) 10 ml IV BID PAULINA Sodium Chloride (Sodium Chloride 0.9% 10 Ml Flush Syringe) 10 ml IV PRN PRN PRN Reason: LINE FLUSH Tramadol HCl (Tramadol 50 Mg Tab) 50 mg PO Q6H PRN PRN Reason: Pain, Moderate (4-6) Review of Systems All systems: negative Physical Examination Vital signs: Vital Signs Temp Pulse Resp BP Pulse Ox 98.5 F 86 18 214/149 99 05/16/22 16:51 05/16/22 16:51 05/16/22 16:51 05/16/22 16:51 05/16/22 16:51 General appearance: no acute distress, alert, other (appears tired. No acute respiratory distress.) Eyes: non-icteric ENT: oropharynx moist Neck: supple, no JVD Ascultation: Bilateral: clear Cardiovascular: regular rate and rhythm Gastrointestinal: normoactive bowel sounds, soft, tender Integumentary: normal Extremities: no cyanosis, no edema Musculoskeletal: no deformities normal mental status, non-focal exam, pupils equal and round, CN II-XII normal depressed Results - Laboratory Findings CBC and BMP: 05/18/22 05:22 05/18/22 05:22 PT/INR, D-dimer PT 13.0 Sec. (12.2-14.9) 05/16/22 17:25 INR 0.89 (0.87-1.13) 05/16/22 17:25 Abnormal lab findings: Abnormal Labs 05/16/22 05/16/22 05/16/22 16:51 17:25 17:25 WBC RBC 5.96 H Hgb 16.8 H Hct 53.0 H Lymph % (Auto) 8.9 L Lymph # (Auto) 0.8 L Seg Neutrophils % 87.7 H Seg Neuts % (Manual) Lymphocytes % (Manual) Monocytes % (Manual) Seg Neutrophils # 7.8 H Seg Neutrophils # Man Lymphocytes # (Manual) Monocytes # (Manual) Glucose 151 H POC Glucose 154 H Calcium 10.5 H Total Protein 8.3 H Albumin 5.7 H 05/16/22 05/17/22 05/17/22 23:36 05:25 05:25 WBC 12.6 H RBC 5.83 H Hgb 16.3 H Hct 51.2 H Lymph % (Auto) Lymph # (Auto) Seg Neutrophils % Seg Neuts % (Manual) 84.0 H Lymphocytes % (Manual) 4.0 L Monocytes % (Manual) 12.0 H Seg Neutrophils # Seg Neutrophils # Man 10.6 H Lymphocytes # (Manual) 0.5 L Monocytes # (Manual) 1.5 H Glucose 130 H 122 H POC Glucose Calcium Total Protein Albumin - Diagnostic Findings Chest x-ray: report reviewed, image reviewed Additional studies: CHEST 2 VIEWS 05/16/22 INDICATION / CLINICAL INFORMATION: Chest Pain. COMPARISON: None available. FINDINGS: SUPPORT DEVICES: None. HEART / MEDIASTINUM: No significant abnormality. LUNGS / PLEURA: No significant pulmonary or pleural abnormality. No pneumothorax. ADDITIONAL FINDINGS: No significant additional findings. IMPRESSION: 1. No acute findings. CTA CHEST WITH CONTRAST 05/16/22 INDICATION / CLINICAL INFORMATION: chest pain,htn, n,v, diarrhea. TECHNIQUE: Axial CT images were obtained through the chest after injection of 100 IV contrast. 3 plane MIP and/or 3D reconstructions were produced. All CT scans at this location are performed using CT dose reduction for ALARA by means of automated exposure control. COMPARISON: Chest radiograph same day. FINDINGS: PULMONARY EMBOLUS: None. THORACIC AORTA: No significant abnormality. HEART: No significant abnormality. CORONARY ARTERY CALCIFICATION: Absent -- None. MEDIASTINUM / CARISSA: Small volume soft tissue density within the anterior superior mediastinum statistically is most likely reflective of a small component of residual thymus. Small hiatal hernia with small volume distal esophageal fluid with mild thickening. PLEURA: No pleural effusion. No pneumothorax. LUNGS: No acute air space or interstitial disease. ADDITIONAL FINDINGS: None. UPPER ABDOMEN: No acute findings. SKELETAL STRUCTURES: No significant osseous abnormality. IMPRESSION: 1. No CT evidence for PTE, or acute aortic abnormality. 2. Small hiatal hernia with features supportive of mild esophageal reflux. 3. Small volume soft tissue density anterior superior mediastinum most likely reflective of a small component of residual thymus, mild nonspecific lymphadenopathy secondarily considered. Assessment and Plan 31-year-old -[place] male with no significant past medical history presenting to the emergency room today complaining of chest pain. Chest pain is said to be substernal and sharp. He has had associated nausea and vomiting and occasional diarrhea over the past few days. Patient denies any headache or dizziness. Has been diaphoretic. Denies any fe zahira or chills, denies any hematuria or dysuria. Patient denies any illicit drug use. Upon arrival in the emergency room patient was found to be diaphoretic and actively vomiting. Blood pressure was found to be elevated with systolic in the 200s and diastolic in the low 100s. Patient was therefore placed on Cardene drip. Work-up in the emergency room today, chest x-ray was unremarkable. CT angiogram chest was negative for pulmonary embolism. Patient has small hiatal hernia features suggestive of mild esophageal reflux. Urinalysis was unremarkable. UDS was positive for marijuana opiates. Patient has history of smoking 1/3 rd pack a day x 7 years. Also smokes Marijuana. Denies alcohol abuse. Works as [employer]. Not . Has no children. Allergic to haloperidol. Patient continued to have progressive chest pain while in the emergency room. He became diaphoretic and was in sinus tachycardia. Patient subsequently switched to nitroglycerin drip. Patient awake. Resting on room air. O2 saturation 96%. Patient appears tired. No acute respiratory distress. Patient afebrile. Has leukocytosis. Blood pressure 174/113, Pulse 94, Respirations 24. Patients Tropinin, lipase. tsh levels normal. Patients HGB 16.3 , HCT 51.2 slightly elevated likely from dehydration from nausea , vomiting. Chest xray obtained 05/16/22 reported No significant pulmonary or pleural abnormality. No pneumothorax. Angio CT of chest 05/16/[address] evidence for PTE, or acute aortic abnormality. Small hiatal hernia with features supportive of mild esophageal reflux. Small volume soft tissue density anterior superior mediastinum most likely reflective of a small component of residual thymus, mild nonspecific lymphadenopathy secondarily considered. Patient is on Nitroglycerin drip. Patient was seen in the emergency room. I spent critical care time of 40 minutes,obtaining history, review the chart, examine the patient, review the chest xray, CT of chest, lab work, talking to the nursing staff and work up plan of treatment with this patient with chest pain and hypertensive emergency with nausea and vomiting. - Patient Problems (1) Nausea and vomiting Current Visit: Yes Status: Acute Plan to address problem: Management as per primary care. (2) Atypical chest pain Current Visit: Yes Status: Acute Plan to address problem: Management as per cardiology. (3) Hypertensive urgency Current Visit: Yes Status: Acute Plan to address problem: Patient is on Nitroglycerine drip. Management as per primary care. (4) Esophageal reflux Current Visit: Yes Status: Acute Plan to address problem: CT of chest reported small hiatal hernia and mild esophageal reflux. Recommend proton pump inhibitor like prilosec. (5) Marijuana abuse Current Visit: Yes Status: Acute Plan to address problem: Urine drug screen positive for Marijuana and Opioids. Counseled stop using those drugs. Management as per primary care.
--- NOTE | 2022-05-17 11:20 | Progress Note ---
Assessment and Plan Assessment and plan: 31-year-old -[place] male with no significant past medical history presenting to the emergency room today complaining of chest pain. Chest pain is said to be substernal and sharp. He has had associated nausea and vomiting and occasional diarrhea over the past few days. Patient denies any headache or dizziness. Has been diaphoretic. Denies any fever or chills, denies any hematuria or dysuria. Patient denies any illicit drug use. Upon arrival in the emergency room patient was found to be diaphoretic and actively vomiting. Blood pressure was found to be elevated with systolic in the 200s and diastolic in the low 100s. Patient was therefore placed on Cardene drip. Work-up in the emergency room today, chest x-ray was unremarkable. CT angiogram chest was negative for pulmonary embolism. Patient has small hiatal hernia features suggestive of mild esophageal reflux. Urinalysis was unremarkable. UDS was positive for marijuana opiates. Patient continued to have progressive chest pain while in the emergency room. He became diaphoretic and was in sinus tachycardia. Patient subsequently switched to nitroglycerin drip. Past History Past Medical History: No medical history Past Surgical History: No surgical history Social history: no significant social history Family history: no significant family history 05/17: Patient seen and examined this morning still with chest discomfort nonreproducible. Troponins are negative. I have initiated him on beta-laina and valsartan and discussed with nursing staff to see if we can wean him off the nitroglycerin which at this time is not truly helping with his blood pressure. He is not diaphoretic anymore. He does not have any nausea or vomiting at this time. No headache at this time. Compliance with doctor visits and management has been discussed with him. He denies any family history of premature cardiac . I will check a TSH and echocardiogram. While awaiting cardiology evaluation. Also provided counseling on substance abuse and on tobacco cessation therapy. 1. Chest pain evaluating for CAD 2. Hypertensive emergency with subsequent chest discomfort 3. Nausea and vomiting-possibly secondary to acid reflux 4. Tobacco/marijuana use disorder 5. Anemia/leukocytosis Plan: 1. Patient admitted into the intensive care unit and placed on nitroglycerin dr ip. 2. We will check serial cardiac enzymes. 3. Patient placed on aspirin, sublingual nitroglycerin and IV morphine as needed for chest pain. 4. Consult placed to cardiology for evaluation and recommendations. 5. Meanwhile will schedule for echocardiogram and stress test. DVT Prophylaxis: Subcutaneous heparin Critical care time 45 minutes Code Status: Full Code. History Interval history: Patient seen and examined, no acute distress. He reports that he has not been using any blood pressure medication on this time. Hospitalist Physical - Physical exam Narrative exam: VITAL SIGNS: Reviewed. GENERAL: The patient appears normally developed, obese vital signs as documen tyrone. HEAD: No signs of head trauma. EYES: Pupils are equal. Extraocular motions intact. EARS: Hearing grossly intact. MOUTH: Oropharynx is normal. NECK: No adenopathy, no JVD. CHEST: Chest with clear breath sounds bilaterally. No wheezes, rales, or rhonchi. CARDIAC: Regular rate and rhythm. S1 and S2, without murmurs, gallops, or rubs. VASCULAR: No Edema. Peripheral pulses normal and equal in all extremities. ABDOMEN: Soft, non tender and non distended. No rebound or guarding, and no masses palpated. Bowel Sounds normal. MUSCULOSKELETAL: Good range of motion of all major joints. Extremities without clubbing, cyanosis or edema. NEUROLOGIC EXAM: Alert and oriented x 3 No focal sensory or strength deficits. Speech normal. Follows commands. PSYCHIATRIC: Mood normal. SKIN: detail exam as documented in skin assessment - Constitutional Vitals: Temp Pulse Resp BP Pulse Ox 97.8 F 97 H 20 159/108 95 05/16/22 17:51 05/17/22 09:15 05/17/22 09:15 05/17/22 10:45 05/17/22 10:45 General appearance: Present: no acute distress, well-nourished HEART Score - HEART Score Troponin: Troponin T < 0.010 ng/mL (0.00-0.029) 05/17/22 05:25 Results - Labs CBC & Chem 7: 05/17/22 05:25 05/17/22 05:25 Labs: Laboratory Last Values WBC 12.6 K/mm3 (4.5-11.0) H 05/17/22 05:25 RBC 5.83 M/mm3 (3.65-5.03) H 05/17/22 05:25 Hgb 16.3 gm/dl (11.8-15.2) H 05/17/22 05:25 Hct 51.2 % (35.5-45.6) H 05/17/22 05:25 MCV 88 fl (84-94) 05/17/22 05:25 MCH 28 pg (28-32) 05/17/22 05:25 MCHC 32 % (32-34) 05/17/22 05:25 RDW 14.5 % (13.2-15.2) 05/17/22 05:25 Plt Count 303 K/mm3 (140-440) 05/17/22 05:25 Lymph % (Auto) 8.9 % (13.4-35.0) L 05/16/22 17:25 [place] % (Auto) 3.0 % (0.0-7.3) 05/16/22 17:25 Eos % (Auto) 0.0 % (0.0-4.3) 05/16/22 17:25 Baso % (Auto) 0.4 % (0.0-1.8) 05/16/22 17:25 Lymph # (Auto) 0.8 K/mm3 (1.2-5.4) L 05/16/22 17:25 [place] # (Auto) 0.3 K/mm3 (0.0-0.8) 05/16/22 17:25 Eos # (Auto) 0.0 K/mm3 (0.0-0.4) 05/16/22 17:25 Baso # (Auto) 0.0 K/mm3 (0.0-0.1) 05/16/22 17:25 Add Manual Diff Complete 05/17/22 05:25 Total Counted 100 05/17/22 05:25 Seg Neutrophils % 87.7 % (40.0-70.0) H 05/16/22 17:25 Seg Neuts % (Manual) 84.0 % (40.0-70.0) H 05/17/22 05:25 Band Neutrophils % 0 % 05/17/22 05:25 Lymphocytes % (Manual) 4.0 % (13.4-35.0) L 05/17/22 05:25 Reactive Lymphs % (Man) 0 % 05/17/22 05:25 Monocytes % (Manual) 12.0 % (0.0-7.3) H 05/17/22 05:25 Eosinophils % (Manual) 0 % (0.0-4.3) 05/17/22 05:25 Basophils % (Manual) 0 % (0.0-1.8) 05/17/22 05:25 Metamyelocytes % 0 % 05/17/22 05:25 Myelocytes % 0 % 05/17/22 05:25 Promyelocytes % 0 % 05/17/22 05:25 Blast Cells % 0 % 05/17/22 05:25 Nucleated RBC % Not Reportable 05/17/22 05:25 Seg Neutrophils # 7.8 K/mm3 (1.8-7.7) H 05/16/22 17:25 Seg Neutrophils # Man 10.6 K/mm3 (1.8-7.7) H 05/17/22 05:25 Band Neutrophils # 0.0 K/mm3 05/17/22 05:25 Lymphocytes # (Manual) 0.5 K/mm3 (1.2-5.4) L 05/17/22 05:25 Abs React Lymphs (Man) 0.0 K/mm3 05/17/22 05:25 Monocytes # (Manual) 1.5 K/mm3 (0.0-0.8) H 05/17/22 05:25 Eosinophils # (Manual) 0.0 K/mm3 (0.0-0.4) 05/17/22 05:25 Basophils # (Manual) 0.0 K/mm3 (0.0-0.1) 05/17/22 05:25 Metamyelocytes # 0.0 K/mm3 05/17/22 05:25 Myelocytes # 0.0 K/mm3 05/17/22 05:25 Promyelocytes # 0.0 K/mm3 05/17/22 05:25 Blast Cells # 0.0 K/mm3 05/17/22 05:25 WBC Morphology Not Reportable 05/17/22 05:25 Hypersegmented Neuts Not Reportable 05/17/22 05:25 Hyposegmented Neuts Not Reportable 05/17/22 05:25 Hypogranular Neuts Not Reportable 05/17/22 05:25 Smudge Cells Not Reportable 05/17/22 05:25 Toxic Granulation Not Reportable 05/17/22 05:25 Toxic Vacuolation Not Reportable 05/17/22 05:25 Dohle Bodies Not Reportable 05/17/22 05:25 Pelger-Huet Anomaly Not Reportable 05/17/22 05:25 Estrella Rods Not Reportable 05/17/22 05:25 Platelet Estimate Consistent w auto 05/17/22 05:25 Clumped Platelets Not Reportable 05/17/22 05:25 Plt Clumps, EDTA Not Reportable 05/17/22 05:25 Large Platelets Not Reportable 05/17/22 05:25 Giant Platelets Not Reportable 05/17/22 05:25 Platelet Satelliting Not Reportable 05/17/22 05:25 Plt Morphology Comment Not Reportable 05/17/22 05:25 RBC Morphology Not Reportable 05/17/22 05:25 Dimorphic RBCs Not Reportable 05/17/22 05:25 Polychromasia Not Reportable 05/17/22 05:25 Hypochromasia Not Reportable 05/17/22 05:25 Poikilocytosis Not Reportable 05/17/22 05:25 Anisocytosis Not Reportable 05/17/22 05:25 Microcytosis Not Reportable 05/17/22 05:25 Macrocytosis Not Reportable 05/17/22 05:25 Spherocytes Not Reportable 05/17/22 05:25 Pappenheimer Bodies Not Reportable 05/17/22 05:25 Sickle Cells Not Reportable 05/17/22 05:25 Target Cells Not Reportable 05/17/22 05:25 Tear Drop Cells Not Reportable 05/17/22 05:25 Ovalocytes Not Reportable 05/17/22 05:25 Helmet Cells Not Reportable 05/17/22 05:25 Beltre-Ezel Bodies Not Reportable 05/17/22 05:25 [place] Rings Not Reportable 05/17/22 05:25 Tiffany Cells Not Reportable 05/17/22 05:25 Bite Cells Not Reportable 05/17/22 05:25 Crenated Cell Not Reportable 05/17/22 05:25 Elliptocytes Not Reportable 05/17/22 05:25 Acanthocytes (Spur) Not Reportable 05/17/22 05:25 Rouleaux Not Reportable 05/17/22 05:25 Hemoglobin C Crystals Not Reportable 05/17/22 05:25 Schistocytes Not Reportable 05/17/22 05:25 Malaria parasites Not Reportable 05/17/22 05:25 Zack Bodies Not Reportable 05/17/22 05:25 Hem Pathologist Commnt No 05/17/22 05:25 PT 13.0 Sec. (12.2-14.9) 05/16/22 17:25 INR 0.89 (0.87-1.13) 05/16/22 17:25 APTT 25.9 Sec. (24.2-36.6) 05/16/22 17:25 Sodium 139 mmol/L (137-145) 05/17/22 05:25 Potassium 4.3 mmol/L (3.6-5.0) 05/17/22 05:25 Chloride 100.1 mmol/L (98-107) 05/17/22 05:25 Carbon Dioxide 22 mmol/L (22-30) 05/17/22 05:25 Anion Gap 21 mmol/L 05/17/22 05:25 BUN 9 mg/dL (9-20) 05/17/22 05:25 Creatinine 0.8 mg/dL (0.8-1.3) 05/17/22 05:25 Estimated GFR > 60 ml/min 05/17/22 05:25 BUN/Creatinine Ratio 11 % 05/17/22 05:25 Glucose 122 mg/dL (75-100) H 05/17/22 05:25 POC Glucose 154 mg/dL (70-105) H 05/16/22 16:51 Calcium 8.9 mg/dL (8.4-10.2) 05/17/22 05:25 Total Bilirubin 0.30 mg/dL (0.1-1.2) 05/16/22 17:25 AST 21 units/L (5-40) 05/16/22 17:25 ALT 21 units/L (7-56) 05/16/22 17:25 Alkaline Phosphatase 93 units/L (35-129) 05/16/22 17:25 Troponin T < 0.010 ng/mL (0.00-0.029) 05/17/22 05:25 Total Protein 8.3 g/dL (6.3-8.2) H 05/16/22 17:25 Albumin 5.7 g/dL (3.9-5) H 05/16/22 17:25 Albumin/Globulin Ratio 2.2 % 05/16/22 17:25 Lipase 13 units/L (13-60) 05/16/22 21:43 Urine Color Colorless (Yellow) 05/17/22 00:28 Urine Turbidity Clear (Clear) 05/17/22 00:28 Specific [place] (Man) 1.015 (1.003-1.030) 05/17/22 00:28 Ur Protein (Man) 4+ mg/dL (Negative) 05/17/22 00:28 Ur Ketones (Man) 5mg/dl (Negative) 05/17/22 00:28 Ur Nitrite (Man) Negative (Negative) 05/17/22 00:28 Urine Bilirubin (Man) Negative (Negative) 05/17/22 00:28 Leukocyte Esterase (Man) Negative (Negative) 05/17/22 00:28 Urine WBC (Auto) 4.0 /HPF (0.0-6.0) 05/17/22 00:28 Urine RBC (Auto) 2.0 /HPF (0.0-6.0) 05/17/22 00:28 Urine RBC (Manual) 2+ (Negative) 05/17/22 00:28 Urine Opiates Screen Presumptive positive 05/17/22 00:28 Urine Methadone Screen Presumptive negative 05/17/22 00:28 Ur Barbiturates Screen Presumptive negative 05/17/22 00:28 Ur Phencyclidine Scrn Presumptive negative 05/17/22 00:28 Ur Amphetamines Screen Presumptive negative 05/17/22 00:28 U Benzodiazepines Scrn Presumptive negative 05/17/22 00:28 Urine Cocaine Screen Presumptive negative 05/17/22 00:28 U Marijuana (THC) Screen Presumptive positive 05/17/22 00:28 Drugs of Abuse Note Disclamer 05/17/22 00:28 Active Medications - Current Medications Current Medications: Generic Name Dose Route Start Last Admin Trade Name Freq PRN Reason Stop Dose Admin Acetaminophen 650 mg 05/16/22 21:57 Acetaminophen 325 Mg Tab PO Q6H PRN Pain MILD(1-3)/Fever >100.5/[place] Aspirin 325 mg 05/17/22 10:00 Aspirin Ec 325 Mg Tab PO QDAY PAULINA Nicardipine HCl 50 mg/ Sodium 250 mls @ 25 mls/hr 05/16/22 22:00 05/17/22 01:00 Chloride IV 0 mg/hr TITR PAULINA 0 mls/hr Titration Protocol 5 MG/HR Nitroglycerin/Dextrose 50 mg in 250 mls @ 3 mls/hr 05/17/22 02:12 05/17/22 11:03 Tridil Drip 50mg/250ml IV 05/20/22 13:31 0 mcg/min TITR ONE 0 mls/hr Titration Protocol 10 MCG/MIN Magnesium Hydroxide 30 ml 05/16/22 23:03 Magnesium Hydroxide (Mom) Oral Liqd Udc PO Q4H PRN Constipation Metoprolol Tartrate 25 mg 05/17/22 11:00 Metoprolol Tartrate 25 Mg Tab PO BID [facility] Morphine Sulfate 2 mg 05/16/22 21:57 Morphine 2 Mg/1 Ml Inj IV Q4H PRN Pain, Moderate (4-6) Morphine Sulfate 4 mg 05/16/22 23:03 Morphine 4 Mg/1 Ml Inj IV Q4H PRN Pain , Severe (7-10) Morphine Sulfate 2 mg 05/16/22 23:03 Morphine 2 Mg/1 Ml Inj IV Q5MIN PRN Chest Pain unrelieved by NTG Nitroglycerin 0.4 mg 05/16/22 23:03 05/17/22 00:30 Nitroglycerin 0.4 Mg Tab Subl SL 0.4 mg Q5M PRN Administration Chest Pain Sodium Chloride 10 ml 05/16/22 22:00 Sodium Chloride 0.9% 10 Ml Flush Syringe IV BID [facility] Sodium Chloride 10 ml 05/16/22 21:56 Sodium Chloride 0.9% 10 Ml Flush Syringe IV PRN PRN LINE FLUSH Tramadol HCl 50 mg 05/16/22 22:57 Tramadol 50 Mg Tab PO Q6H PRN Pain, Moderate (4-6) Valsartan 160 mg 05/17/22 11:00 Valsartan 160mg Tab PO BID [facility]
[2022-05-17] MEDS: VALSARTAN 160MG TAB PO SCH ×2 (11:42→22:20)
[2022-05-17] MEDS ORDERED: METOPROLOL TARTRATE 25 MG TAB PO SCH ×2 (12:00→13:31)
--- NOTE | 2022-05-17 13:23 | Consultation ---
History of Present Illness Consult date: 05/17/22 Requesting physician: CLARA LAZO Consult reason: chest pain History of present illness: Pt is a 31-year-old male who presented with complaints of chest pain and N/V for 2-3 days. Pain is left-sided and sharp. Non-radiating. Has been constant since onset. No relief with NTG. He reports episodes of diaphoresis as well but states N/V and diaphoresis appear to be unrelated to chest pain. No SOB, palpitations, dizziness, lightheadedness, or syncope. Requesting pain meds upon assessment. Of note, BP markedly elevated upon arrival. Review of records reveals multiple admissions at outside hospitals, including [facility], for similar issues. Pt states he does not take any antihypertensives at home. He denies any other medical hx aside from HTN. Does not have a PCP. Previously unknown to our practice. Past History Past Medical History: hypertension Past Surgical History: No surgical history Social history: smoking (tobacco/marijuana), alcohol abuse (daily) Family history: denies: CAD Medications and Allergies Allergies Allergy/AdvReac Type Severity Reaction Status Date / Time haloperidol [From Haldol] Allergy Unknown Verified 05/16/22 17:56 Active Meds: Active Medications Acetaminophen (Acetaminophen 325 Mg Tab) 650 mg PO Q6H PRN PRN Reason: Pain MILD(1-3)/Fever >100.5/[place] Aspirin (Aspirin Ec 325 Mg Tab) 325 mg PO QDAY PAULINA Nicardipine HCl 50 mg/ Sodium (Chloride) 250 mls @ 25 mls/hr IV TITR PAULINA; Protocol Last Titration: 05/17/22 01:00 Dose: 0 mg/hr, 0 mls/hr Nitroglycerin/Dextrose (Tridil Drip 50mg/250ml) 50 mg in 250 mls @ 3 mls/hr IV TITR ONE; Protocol Stop: 05/20/22 13:31 Last Titration: 05/17/22 13:07 Dose: 5 mcg/min, 1.5 mls/hr Magnesium Hydroxide (Magnesium Hydroxide (Mom) Oral Liqd Udc) 30 ml PO Q4H PRN PRN Reason: Constipation Metoprolol Tartrate (Metoprolol Tartrate 25 Mg Tab) 25 mg PO BID PAULINA Last Admin: 05/17/22 11:42 Dose: 25 mg Morphine Sulfate (Morphine 2 Mg/1 Ml Inj) 2 mg IV Q4H PRN PRN Reason: Pain, Moderate (4-6) Morphine Sulfate (Morphine 4 Mg/1 Ml Inj) 4 mg IV Q4H PRN PRN Reason: Pain , Severe (7-10) Last Admin: 05/17/22 13:08 Dose: 4 mg Morphine Sulfate (Morphine 2 Mg/1 Ml Inj) 2 mg IV Q5MIN PRN PRN Reason: Chest Pain unrelieved by NTG Nitroglycerin (Nitroglycerin 0.4 Mg Tab Subl) 0.4 mg SL Q5M PRN PRN Reason: Chest Pain Last Admin: 05/17/22 00:30 Dose: 0.4 mg Sodium Chloride (Sodium Chloride 0.9% 10 Ml Flush Syringe) 10 ml IV BID [facility] Sodium Chloride (Sodium Chloride 0.9% 10 Ml Flush Syringe) 10 ml IV PRN PRN PRN Reason: LINE FLUSH Tramadol HCl (Tramadol 50 Mg Tab) 50 mg PO Q6H PRN PRN Reason: Pain, Moderate (4-6) Valsartan (Valsartan 160mg Tab) 160 mg PO BID [facility] Last Admin: 05/17/22 11:42 Dose: 160 mg Review of Systems Constitutional: sweats, no fever, no chills Ears, nose, mouth and throat: no nasal congestion, no sore throat Cardiovascular: chest pain, no palpitations, no edema, no syncope, no lightheadedness, no shortness of breath, no claudication Respiratory: no cough, no shortness of breath Gastrointestinal: abdominal pain, nausea, vomiting Genitourinary Male: no dysuria Musculoskeletal: no neck stiffness, no neck pain Integumentary: no rash, no wounds Neurological: no numbness, no tingling, no seizures, no syncope, no vertigo, no headaches Endocrine: no polydipsia, no polyuria Hematologic/Lymphatic: no easy bruising, no easy bleeding Allergic/Immunologic: no anaphylaxis Physical Examination Vital Signs Temp Pulse Resp BP Pulse Ox 98.5 F 86 18 214/149 99 05/16/22 16:51 05/16/22 16:51 05/16/22 16:51 05/16/22 16:51 05/16/22 16:51 General appearance: no acute distress HEENT: Positive: EOMI, Normocephaly Neck: Negative: JVD/HJR Cardiac: Positive: Reg Rate and Rhythm, S1/S2 Lungs: Positive: clear to auscultation Neuro: Positive: Grossly Intact Abdomen: Positive: Soft Skin: Negative: Rash Musculoskeletal: No Pain Extremities: Present: warm. Absent: edema Results 05/17/22 05:25 05/17/22 05:25 Cardiac Enzymes 05/16/22 Range/Units 17:25 AST 21 (5-40) units/L Coagulation 05/16/22 Range/Units 17:25 PT 13.0 (12.2-14.9) Sec. INR 0.89 (0.87-1.13) APTT 25.9 (24.2-36.6) Sec. CBC 05/16/22 05/17/22 Range/Units 17:25 05:25 WBC 8.9 12.6 H (4.5-11.0) K/mm3 RBC 5.96 H 5.83 H (3.65-5.03) M/mm3 Hgb 16.8 H 16.3 H (11.8-15.2) gm/dl Hct 53.0 H 51.2 H (35.5-45.6) % Plt Count 322 303 (140-440) K/mm3 Lymph # (Auto) 0.8 L (1.2-5.4) K/mm3 [place] # (Auto) 0.3 (0.0-0.8) K/mm3 Eos # (Auto) 0.0 (0.0-0.4) K/mm3 Baso # (Auto) 0.0 (0.0-0.1) K/mm3 Comprehensive Metabolic Panel 05/16/22 05/16/22 05/17/22 Range/Units 17:25 23:36 05:25 Sodium 143 141 139 (137-145) mmol/L Potassium 4.3 4.9 4.3 (3.6-5.0) mmol/L Chloride 99.4 99.7 100.1 (98-107) mmol/L Carbon Dioxide 22 22 22 (22-30) mmol/L BUN 11 9 9 (9-20) mg/dL Creatinine 0.8 0.8 0.8 (0.8-1.3) mg/dL Glucose 151 H 130 H 122 H (75-100) mg/dL Calcium 10.5 H 10.1 8.9 (8.4-10.2) mg/dL AST 21 (5-40) units/L ALT 21 (7-56) units/L Alkaline Phosphatase 93 (35-129) units/L Total Protein 8.3 H (6.3-8.2) g/dL Albumin 5.7 H (3.9-5) g/dL - Imaging and Cardiology Echo: pending EKG: report reviewed, image reviewed - EKG Interpretation EKG: no acute changes EKG interpretations - EKG Sinus rhythms and dysrhythmias: sinus rhythm Assessment and Plan Assessment: Atypical Chest Pain Hypertensive Urgency Nausea/Vomiting GERD Obesity Medical Non-Compliance EtOH Use Tobacco Use Marijuana Use Echo 05/2020 - EF 65%, mild LVH, no significant valvular abnormalities Treadmill stress test 05/2020 - negative for ischemia Plan: Tn neg x 3. ECG reveals no acute ischemic changes. Echo pending. Optimize antihypertensive regimen. Continue Valsartan 160mg BID. Increase Lopressor to 50mg BID. Add Amlodipine 10mg daily. Wean NTG gtt as tolerated. CTA chest negative for PE but does reveal small soft tissue density at anterior superior mediastinum, ?residual thymus vs non-specific lymphadenopathy. Pt seen in conjunction with Dr. Murillo, who agrees with the assessment and plan of care. - Patient Problems (1) Atypical chest pain Current Visit: Yes Status: Acute (2) Hypertensive urgency Current Visit: Yes Status: Acute (3) Nausea and vomiting Current Visit: Yes Status: Acute
[2022-05-17] MEDS ORDERED: amLODIPine 10 MG TAB PO SCH (15:00)
[2022-05-17] MEDS: ASPIRIN EC 325 MG TAB PO SCH (16:09)
[2022-05-17] MEDS: METOPROLOL TARTRATE 50 MG TAB PO SCH ×2 (16:15→22:20)
[2022-05-17] MEDS ORDERED: NITROGLYCERIN DRIP 50 MG/250 ML BOTTLE IV SCH (17:00)
[2022-05-18 06:00] LABS: BUN/Creatinine Ratio 18; Blood Urea Nitrogen 14 mg/dL (9-20); Calcium 9.5 mg/dL (8.4-10.2); Hemolysis Index 18
[2022-05-18 06:02] LABS: Hematocrit 54.8 % (35.5-45.6); Hemoglobin 17.4 gm/dl (11.8-15.2); Mean Corpuscular HGB Conc 32 % (32-34); Mean Corpuscular Volume 88 fl (84-94); Platelet Count 316 K/mm3 (140-440); Red Blood Count 6.26 M/mm3 (3.65-5.03); Red Cell Distribution Width 14.3 % (13.2-15.2)
[2022-05-18] MEDS: METOPROLOL TARTRATE 50 MG TAB PO SCH ×3 (07:48→21:26)
[2022-05-18] MEDS ORDERED: ONDANSETRON 4 MG/2 ML INJ IV PRN (09:00)
[2022-05-18] MEDS: MORPHINE 4 MG/1 ML INJ IV PRN ×2 (09:27→17:50)
[2022-05-18] MEDS: CHLORTHALIDONE 25 MG TAB PO SCH (09:30)
[2022-05-18] MEDS: PANTOPRAZOLE 40 MG INJ IV SCH (09:30)
[2022-05-18] MEDS: VALSARTAN 160MG TAB PO SCH ×2 (10:11→21:27)
[2022-05-18] MEDS ORDERED: hydrALAZINE 20 MG/1 ML INJ IV PRN (10:30)
[2022-05-18] MEDS: ASPIRIN EC 325 MG TAB PO SCH (11:39)
--- NOTE | 2022-05-18 12:28 | Progress Note ---
Assessment and Plan Assessment and plan: 31-year-old -[place] male with no significant past medical history presenting to the emergency room today complaining of chest pain. Chest pain is said to be substernal and sharp. He has had associated nausea and vomiting and occasional diarrhea over the past few days. Patient denies any headache or dizziness. Has been diaphoretic. Denies any fever or chills, denies any hematuria or dysuria. Patient denies any illicit drug use. Upon arrival in the emergency room patient was found to be diaphoretic and actively vomiting. Blood pressure was found to be elevated with systolic in the 200s and diastolic in the low 100s. Patient was therefore placed on Cardene drip. Work-up in the emergency room today, chest x-ray was unremarkable. CT angiogram chest was negative for pulmonary embolism. Patient has small hiatal hernia features suggestive of mild esophageal reflux. Urinalysis was unremarkable. UDS was positive for marijuana opiates. Patient continued to have progressive chest pain while in the emergency room. He became diaphoretic and was in sinus tachycardia. Patient subsequently switched to nitroglycerin drip. Past History Past Medical History: No medical history Past Surgical History: No surgical history Social history: no significant social history Family history: no significant family history 05/17: Patient seen and examined this morning still with chest discomfort nonreproducible. Troponins are negative. I have initiated him on beta-laina and valsartan and discussed with nursing staff to see if we can wean him off the nitroglycerin which at this time is not truly helping with his blood pressure. He is not diaphoretic anymore. He does not have any nausea or vomiting at this time. No headache at this time. Compliance with doctor visits and management has been discussed with him. He denies any family history of premature cardiac . I will check a TSH and echocardiogram. While awaiting cardiology evaluation. Also provided counseling on substance abuse and on tobacco cessation therapy. 05/18: Made some slight adjustments to his medication to be able to get him off the nitro drip, We placed him chlorthalidone, continue his beta-laina, continue the valsartan. I have asked for repeat EKG as I do not see his previous EKG. I reemphasized tobacco cessation who verbalized understanding TSH reviewed normal, will await echo read. Patient can be downgraded to the medical floor telemetry 1. Chest pain evaluating for CAD 2. Hypertensive emergency with subsequent chest discomfort 3. Nausea and vomiting-possibly secondary to acid reflux 4. Tobacco/marijuana use disorder 5. Anemia/leukocytosis 6. Headache Plan: 1. Patient admitted into the intensive care unit and placed on nitroglycerin drip. 2. We will check serial cardiac enzymes. 3. Patient placed on aspirin, sublingual nitroglycerin and IV morphine as needed for chest pain. 4. Consult placed to cardiology for evaluation and recommendations. 5. Meanwhile will schedule for echocardiogram and stress test. DVT Prophylaxis: Subcutaneous heparin Code Status: Full Code. History Interval history: Patient seen and examined, no acute distress. Still reports lower chest discomfort. Risks appropriate return intensity. Overnight night was having nausea with vomiting which is improved. He have to go back and nitro drip. He also reports headache was not thunderclap no blurry vision. Rates the headache a 2/ Hospitalist Physical - Physical exam Narrative exam: VITAL SIGNS: Reviewed. GENERAL: The patient appears normally developed, obese vital signs as documented. HEAD: No signs of head trauma. EYES: Pupils are equal. Extraocular motions intact. EARS: Hearing grossly intact. MOUTH: Oropharynx is normal. NECK: No adenopathy, no JVD. CHEST: Chest with clear breath sounds bilaterally. No wheezes, rales, or rhonchi. CARDIAC: Regular rate and rhythm. S1 and S2, without murmurs, gallops, or rubs. VASCULAR: No Edema. Peripheral pulses normal and equal in all extremities. ABDOMEN: Soft, non tender and non distended. No rebound or guarding, and no masses palpated. Bowel Sounds normal. MUSCULOSKELETAL: Good range of motion of all major joints. Extremities without clubbing, cyanosis or edema. NEUROLOGIC EXAM: Alert and oriented x 3 No focal sensory or strength deficits. Speech normal. Follows commands. PSYCHIATRIC: Mood normal. SKIN: detail exam as documented in skin assessment - Constitutional Vitals: Temp Pulse Resp BP Pulse Ox 98.5 F 89 18 138/97 92 05/17/22 19:36 05/18/22 08:20 05/18/22 08:30 05/18/22 09:16 05/18/22 09:16 General appearance: Present: no acute distress HEART Score - HEART Score EKG: Normal Age: < 45 Risk factors: 1-2 risk factors Troponin: Troponin T < 0.010 ng/mL (0.00-0.029) 05/17/22 05:25 Troponin: < normal limit Results - Labs CBC & Chem 7: 05/18/22 05:22 05/18/22 05:22 Labs: Laboratory Last Values WBC 15.1 K/mm3 (4.5-11.0) H 05/18/22 05:22 RBC 6.26 M/mm3 (3.65-5.03) H 05/18/22 05:22 Hgb 17.4 gm/dl (11.8-15.2) H 05/18/22 05:22 Hct 54.8 % (35.5-45.6) H 05/18/22 05:22 MCV 88 fl (84-94) 05/18/22 05: MCH 28 pg (28-32) 05/18/22 05: MCHC 32 % (32-34) 05/18/22 05:22 RDW 14.3 % (13.2-15.2) 05/18/22 05:22 Plt Count 316 K/mm3 (140-440) 05/18/22 05:22 Lymph % (Auto) 8.9 % (13.4-35.0) L 05/16/22 17:25 [place] % (Auto) 3.0 % (0.0-7.3) 05/16/22 17:25 Eos % (Auto) 0.0 % (0.0-4.3) 05/16/22 17:25 Baso % (Auto) 0.4 % (0.0-1.8) 05/16/22 17:25 Lymph # (Auto) 0.8 K/mm3 (1.2-5.4) L 05/16/22 17:25 [place] # (Auto) 0.3 K/mm3 (0.0-0.8) 05/16/22 17:25 Eos # (Auto) 0.0 K/mm3 (0.0-0.4) 05/16/22 17:25 Baso # (Auto) 0.0 K/mm3 (0.0-0.1) 05/16/22 17:25 Add Manual Diff Complete 05/17/22 05:25 Total Counted 100 05/17/22 05:25 Seg Neutrophils % 87.7 % (40.0-70.0) H 05/16/22 17:25 Seg Neuts % (Manual) 84.0 % (40.0-70.0) H 05/17/22 05:25 Band Neutrophils % 0 % 05/17/22 05:25 Lymphocytes % (Manual) 4.0 % (13.4-35.0) L 05/17/22 05:25 Reactive Lymphs % (Man) 0 % 05/17/22 05:25 Monocytes % (Manual) 12.0 % (0.0-7.3) H 05/17/22 05:25 Eosinophils % (Manual) 0 % (0.0-4.3) 05/17/22 05:25 Basophils % (Manual) 0 % (0.0-1.8) 05/17/22 05:25 Metamyelocytes % 0 % 05/17/22 05:25 Myelocytes % 0 % 05/17/22 05:25 Promyelocytes % 0 % 05/17/22 05:25 Blast Cells % 0 % 05/17/22 05:25 Nucleated RBC % Not Reportable 05/17/22 05:25 Seg Neutrophils # 7.8 K/mm3 (1.8-7.7) H 05/16/22 17:25 Seg Neutrophils # Man 10.6 K/mm3 (1.8-7.7) H 05/17/22 05:25 Band Neutrophils # 0.0 K/mm3 05/17/22 05:25 Lymphocytes # (Manual) 0.5 K/mm3 (1.2-5.4) L 05/17/22 05:25 Abs React Lymphs (Man) 0.0 K/mm3 05/17/22 05:25 Monocytes # (Manual) 1.5 K/mm3 (0.0-0.8) H 05/17/22 05:25 Eosinophils # (Manual) 0.0 K/mm3 (0.0-0.4) 05/17/22 05:25 Basophils # (Manual) 0.0 K/mm3 (0.0-0.1) 05/17/22 05:25 Metamyelocytes # 0.0 K/mm3 05/17/22 05:25 Myelocytes # 0.0 K/mm3 05/17/22 05:25 Promyelocytes # 0.0 K/mm3 05/17/22 05:25 Blast Cells # 0.0 K/mm3 05/17/22 05:25 WBC Morphology Not Reportable 05/17/22 05:25 Hypersegmented Neuts Not Reportable 05/17/22 05:25 Hyposegmented Neuts Not Reportable 05/17/22 05:25 Hypogranular Neuts Not Reportable 05/17/22 05:25 Smudge Cells Not Reportable 05/17/22 05:25 Toxic Granulation Not Reportable 05/17/22 05:25 Toxic Vacuolation Not Reportable 05/17/22 05:25 Dohle Bodies Not Reportable 05/17/22 05:25 Pelger-Huet Anomaly Not Reportable 05/17/22 05:25 Estrella Rods Not Reportable 05/17/22 05:25 Platelet Estimate Consistent w auto 05/17/22 05:25 Clumped Platelets Not Reportable 05/17/22 05:25 Plt Clumps, EDTA Not Reportable 05/17/22 05:25 Large Platelets Not Reportable 05/17/22 05:25 Giant Platelets Not Reportable 05/17/22 05:25 Platelet Satelliting Not Reportable 05/17/22 05:25 Plt Morphology Comment Not Reportable 05/17/22 05:25 RBC Morphology Not Reportable 05/17/22 05:25 Dimorphic RBCs Not Reportable 05/17/22 05:25 Polychromasia Not Reportable 05/17/22 05:25 Hypochromasia Not Reportable 05/17/22 05:25 Poikilocytosis Not Reportable 05/17/22 05:25 Anisocytosis Not Reportable 05/17/22 05:25 Microcytosis Not Reportable 05/17/22 05:25 Macrocytosis Not Reportable 05/17/22 05:25 Spherocytes Not Reportable 05/17/22 05:25 Pappenheimer Bodies Not Reportable 05/17/22 05:25 Sickle Cells Not Reportable 05/17/22 05:25 Target Cells Not Reportable 05/17/22 05:25 Tear Drop Cells Not Reportable 05/17/22 05:25 Ovalocytes Not Reportable 05/17/22 05:25 Helmet Cells Not Reportable 05/17/22 05:25 [place] Bodies Not Reportable 05/17/22 05:25 [place] Rings Not Reportable 05/17/22 05:25 [place] Cells Not Reportable 05/17/22 05:25 Bite Cells Not Reportable 05/17/22 05:25 Crenated Cell Not Reportable 05/17/22 05:25 Elliptocytes Not Reportable 05/17/22 05:25 Acanthocytes (Spur) Not Reportable 05/17/22 05:25 Rouleaux Not Reportable 05/17/22 05:25 Hemoglobin C Crystals Not Reportable 05/17/22 05:25 Schistocytes Not Reportable 05/17/22 05:25 Malaria parasites Not Reportable 05/17/22 05:25 Zack Bodies Not Reportable 05/17/22 05:25 Hem Pathologist Commnt No 05/17/22 05:25 PT 13.0 Sec. (12.2-14.9) 05/16/22 17:25 INR 0.89 (0.87-1.13) 05/16/22 17:25 APTT 25.9 Sec. (24.2-36.6) 05/16/22 17:25 Sodium 137 mmol/L (137-145) 05/18/22 05:22 Potassium 4.4 mmol/L (3.6-5.0) 05/18/22 05:22 Chloride 94.8 mmol/L (98-107) L 05/18/22 05:22 Carbon Dioxide 27 mmol/L (22-30) 05/18/22 05:22 Anion Gap 20 mmol/L 05/18/22 05:22 BUN 14 mg/dL (9-20) 05/18/22 05:22 Creatinine 0.8 mg/dL (0.8-1.3) 05/18/22 05:22 Estimated GFR > 60 ml/min 05/18/22 05:22 BUN/Creatinine Ratio 18 % 05/18/22 05:22 Glucose 108 mg/dL (75-100) H 05/18/22 05:22 POC Glucose 154 mg/dL (70-105) H 05/16/22 16:51 Calcium 9.5 mg/dL (8.4-10.2) 05/18/22 05:22 Total Bilirubin 0.30 mg/dL (0.1-1.2) 05/16/22 17:25 AST 21 units/L (5-40) 05/16/22 17:25 ALT 21 units/L (7-56) 05/16/22 17:25 Alkaline Phosphatase 93 units/L (35-129) 05/16/22 17:25 Troponin T < 0.010 ng/mL (0.00-0.029) 05/17/22 05:25 Total Protein 8.3 g/dL (6.3-8.2) H 05/16/22 17:25 Albumin 5.7 g/dL (3.9-5) H 05/16/22 17:25 Albumin/Globulin Ratio 2.2 % 05/16/22 17:25 Lipase 13 units/L (13-60) 05/16/22 21:43 TSH 0.294 mlU/mL (0.270-4.200) 05/17/22 12:32 Urine Color Colorless (Yellow) 05/17/22 00:28 Urine Turbidity Clear (Clear) 05/17/22 00:28 Specific [place] (Man) 1.015 (1.003-1.030) 05/17/22 00:28 Ur Protein (Man) 4+ mg/dL (Negative) 05/17/22 00:28 Ur Ketones (Man) 5mg/dl (Negative) 05/17/22 00:28 Ur Nitrite (Man) Negative (Negative) 05/17/22 00:28 Urine Bilirubin (Man) Negative (Negative) 05/17/22 00:28 Leukocyte Esterase (Man) Negative (Negative) 05/17/22 00:28 Urine WBC (Auto) 4.0 /HPF (0.0-6.0) 05/17/22 00:28 Urine RBC (Auto) 2.0 /HPF (0.0-6.0) 05/17/22 00:28 Urine RBC (Manual) 2+ (Negative) 05/17/22 00:28 Urine Opiates Screen Presumptive positive 05/17/22 00:28 Urine Methadone Screen Presumptive negative 05/17/22 00:28 Ur Barbiturates Screen Presumptive negative 05/17/22 00:28 Ur Phencyclidine Scrn Presumptive negative 05/17/22 00:28 Ur Amphetamines Screen Presumptive negative 05/17/22 00:28 U Benzodiazepines Scrn Presumptive negative 05/17/22 00:28 Urine Cocaine Screen Presumptive negative 05/17/22 00:28 U Marijuana (THC) Screen Presumptive positive 05/17/22 00:28 Drugs of Abuse Note Disclamer 05/17/22 00:28 Active Medications - Current Medications Current Medications: Generic Name Dose Route Start Last Admin Trade Name Freq PRN Reason Stop Dose Admin Acetaminophen 650 mg 05/16/22 21:57 Acetaminophen 325 Mg Tab PO Q6H PRN Pain MILD(1-3)/Fever >100.5/[place] Aspirin 325 mg 05/17/22 10:00 05/18/22 11:39 Aspirin Ec 325 Mg Tab PO 325 mg QDAY PAULINA Administration Chlorthalidone 25 mg 05/18/22 10:00 05/18/22 09:30 Chlorthalidone 25 Mg Tab PO 25 mg QDAY PAULINA Administration Hydralazine HCl 10 mg 05/18/22 10:30 Hydralazine 20 Mg/1 Ml Inj IV Q4HR PRN Hypertension Magnesium Hydroxide 30 ml 05/16/22 23:03 Magnesium Hydroxide (Mom) Oral Liqd Udc PO Q4H PRN Constipation Metoprolol Tartrate 50 mg 05/17/22 15:00 05/18/22 07:48 Metoprolol Tartrate 50 Mg Tab PO 50 mg Q8HR PAULINA Administration Morphine Sulfate 2 mg 05/16/22 21:57 Morphine 2 Mg/1 Ml Inj IV Q4H PRN Pain, Moderate (4-6) Morphine Sulfate 4 mg 05/16/22 23:03 05/18/22 09:27 Morphine 4 Mg/1 Ml Inj IV 4 mg Q4H PRN Administration Pain , Severe (7-10) Morphine Sulfate 2 mg 05/16/22 23:03 05/18/22 05:00 Morphine 2 Mg/1 Ml Inj IV 2 mg Q5MIN PRN Administration Chest Pain unrelieved by NTG Nitroglycerin 0.4 mg 05/16/22 23:03 05/17/22 00:30 Nitroglycerin 0.4 Mg Tab Subl SL 0.4 mg Q5M PRN Administration Chest Pain Ondansetron HCl 4 mg 05/18/22 09:00 05/18/22 09:17 Ondansetron 4 Mg/2 Ml Inj IV 4 mg Q4H PRN Administration Nausea And Vomiting Pantoprazole Sodium 40 mg 05/18/22 10:00 05/18/22 09:30 Pantoprazole 40 Mg Inj IV 40 mg QDAY PAULINA Administration Sodium Chloride 10 ml 05/16/22 22:00 05/18/22 09:39 Sodium Chloride 0.9% 10 Ml Flush Syringe IV 10 ml BID PAULINA Administration Sodium Chloride 10 ml 05/16/22 21:56 Sodium Chloride 0.9% 10 Ml Flush Syringe IV PRN PRN LINE FLUSH Tramadol HCl 50 mg 05/16/22 22:57 Tramadol 50 Mg Tab PO Q6H PRN Pain, Moderate (4-6) Valsartan 160 mg 05/17/22 12:00 05/18/22 10:11 Valsartan 160mg Tab PO 160 mg BID PAULINA Administration Nutrition/Malnutrition Assess - Dietary Evaluation Nutrition/Malnutrition Findings: Nutrition Notes Start: 05/17/22 13:44 Freq: Status: Active Protocol: Document 05/17/22 13:44 TW (Rec: 05/17/22 13:47 TW [email or web address]) Nutrition Notes Need for Assessment generated from: MD Order,Education Initial or Follow up Brief Note Current Diet Full liquid diet Labs/Tests Glucose 122 Pertinent Medications reviewed Height 5 ft 6 in Weight 104.326 kg [place] Body Weight (kg) 64.54 BMI 37.1 Weight Status Obese Subjective/Other Information RD consulted for diet education. Pt presents with chest pain, N/V/D. No prior medical history. Unable to assess PO intake at this time. Pt not a candidate for diet education at this time. Burn Absent Trauma Absent GI Symptoms Nausea,Vomiting,Diarrhea Minimum of two criteria No Nutrition Intervention Anticipated Discharge Needs: Unable to identify at this time Follow-Up By: 05/19/22 Additional Comments F/U PO intakes, diet advancements, diet education needs
--- NOTE | 2022-05-18 12:41 | Progress Note ---
Assessment and Plan Assessment: Atypical Chest Pain Hypertensive Urgency Leukocytosis Nausea/Vomiting GERD Obesity Medical Non-Compliance EtOH Use Tobacco Use Marijuana Use Echo 05/2020 - EF 65%, mild LVH, no significant valvular abnormalities Treadmill stress test 05/2020 - negative for ischemia Plan: Chest pain is atypical. Tn neg x 3. ECG reveals no acute ischemic changes. Echo reviewed - LVEF 65%, borderline LVH, no WMAs, no significant valvular abnormalities. No indication for inpatient ischemic evaluation at this time. Continue to optimize antihypertensive regimen. Otherwise stable cardiac status. Pt seen in conjunction with Dr. Murillo, who agrees with the assessment and plan of care. - Patient Problems (1) Atypical chest pain Current Visit: Yes Status: Acute (2) Hypertensive urgency Current Visit: Yes Status: Acute (3) Nausea and vomiting Current Visit: Yes Status: Acute Subjective Date of service: 05/18/22 Principal diagnosis: Hypertensive Urgency Interval history: No chest pain or further N/V. BP much better. Off NTG gtt. Objective Vital Signs Temp Pulse Resp BP BP Pulse Ox 05/18/22 09:16 138/97 92 05/18/22 09:00 138/97 95 05/18/22 08:46 138/97 89 05/18/22 08:30 18 152/104 96 05/18/22 08:20 89 17 152/104 95 05/18/22 08:16 13 152/104 95 05/18/22 08:00 18 139/103 92 05/18/22 07:45 81 24 149/106 98 05/18/22 07:30 98 H 28 H 172/114 93 05/18/22 07:16 85 19 142/98 90 05/18/22 07:00 83 13 151/111 93 05/18/22 06:46 85 23 151/93 90 05/18/22 06:30 73 26 H 138/96 92 05/18/22 06:16 187/124 89 05/18/22 06:00 187/124 92 05/18/22 05:46 187/124 91 05/18/22 05:30 187/124 92 05/18/22 05:16 187/124 94 05/18/22 05:00 83 21 153/103 92 05/18/22 04:46 83 16 153/103 89 05/18/22 04:30 82 22 153/103 90 05/18/22 04:16 77 12 153/103 90 05/18/22 04:00 81 24 153/103 90 05/18/22 03:46 88 13 153/103 97 05/18/22 03:30 82 23 153/103 91 05/18/22 03:16 80 26 H 153/103 93 05/18/22 03:00 80 21 153/103 93 05/18/22 02:46 73 14 153/103 93 05/18/22 02:30 80 22 153/103 92 05/18/22 02:16 72 25 H 153/103 94 05/18/22 02:00 82 26 H 163/121 89 05/18/22 01:46 84 25 H 163/121 89 05/18/22 01:30 88 18 163/121 97 05/18/22 01:16 78 14 176/123 94 05/18/22 01:00 76 25 H 176/123 93 05/18/22 00:46 72 25 H 176/123 92 05/18/22 00:30 75 15 90 05/18/22 00:16 92 H 15 176/123 94 05/18/22 00:01 87 15 176/123 94 05/17/22 23:45 74 21 176/123 92 05/17/22 23:31 76 23 176/123 91 05/17/22 23:15 83 14 176/123 91 05/17/22 23:01 80 10 L 176/123 96 05/17/22 22:45 86 25 H 176/123 94 05/17/22 22:31 93 H 18 160/108 93 05/17/22 22:15 93 H 12 160/108 94 05/17/22 22:01 86 28 H 160/108 91 05/17/22 21:45 79 29 H 193/138 93 05/17/22 21:31 80 24 193/138 94 05/17/22 21:15 80 23 193/138 89 05/17/22 21:01 80 10 L 193/138 93 05/17/22 20:45 89 11 L 196/138 98 05/17/22 20:31 80 27 H 195/141 96 05/17/22 20:15 76 29 H 174/116 95 05/17/22 20:01 78 34 H 176/135 94 05/17/22 19:45 82 25 H 174/116 94 05/17/22 19:36 98.5 F 75 14 152/99 98 05/17/22 19:31 78 26 H 152/99 91 05/17/22 19:15 203/150 95 05/17/22 19:01 201/155 93 05/17/22 18:45 208/155 90 05/17/22 18:31 214/150 95 05/17/22 18:15 197/150 93 05/17/22 18:01 234/156 97 05/17/22 17:45 205/146 93 05/17/22 17:31 173/120 94 05/17/22 17:15 183/130 97 05/17/22 17:01 183/130 92 05/17/22 16:45 204/142 90 05/17/22 16:31 206/137 94 05/17/22 16:15 195/142 97 05/17/22 16:01 220/150 93 05/17/22 14:31 85 22 172/114 95 05/17/22 14:15 87 22 158/104 94 05/17/22 14:01 85 15 152/97 93 05/17/22 13:45 82 18 152/102 92 05/17/22 13:31 85 21 148/92 95 05/17/22 13:15 84 19 179/110 95 05/17/22 13:01 8 L 212/140 95 05/17/22 12:45 24 212/140 96 - Physical Examination General: No Apparent Distress HEENT: Positive: EOMI, Normocephaly Neck: Negative: JVD/HJR Cardiac: Positive: Reg Rate and Rhythm, S1/S2 Lungs: Positive: clear to auscultation Neuro: Positive: Grossly Intact Abdomen: Positive: Soft Skin: Negative: Rash Musculoskeletal: No Pain Extremities: Present: warm. Absent: edema - Labs and Meds CBC 05/18/22 Range/Units 05:22 WBC 15.1 H (4.5-11.0) K/mm3 RBC 6.26 H (3.65-5.03) M/mm3 Hgb 17.4 H (11.8-15.2) gm/dl Hct 54.8 H (35.5-45.6) % Plt Count 316 (140-440) K/mm3 Comprehensive Metabolic Panel 05/18/22 Range/Units 05:22 Sodium 137 (137-145) mmol/L Potassium 4.4 (3.6-5.0) mmol/L Chloride 94.8 L (98-107) mmol/L Carbon Dioxide 27 (22-30) mmol/L BUN 14 (9-20) mg/dL Creatinine 0.8 (0.8-1.3) mg/dL Glucose 108 H (75-100) mg/dL Calcium 9.5 (8.4-10.2) mg/dL - Imaging and Cardiology EKG: report reviewed, image reviewed Echo: report reviewed - Telemetry EKG Rhythm: Sinus Rhythm - EKG Sinus rhythms and dysrhythmias: sinus rhythm
--- NOTE | 2022-05-18 13:07 | Progress Note ---
Assessment and Plan 31-year-old -Micron[place] male with no significant past medical history presenting to the emergency room today complaining of chest pain. Chest pain is said to be substernal and sharp. He has had associated nausea and vomiting and occasional diarrhea over the past few days. Patient denies any headache or dizziness. Has been diaphoretic. Denies any fever or chills, denies any hematuria or dysuria. Patient denies any illicit drug use. Upon arrival in the emergency room patient was found to be diaphoretic and actively vomiting. Blood pressure was found to be elevated with systolic in the 200s and diastolic in the low 100s. Patient was therefore placed on Cardene drip. Work-up in the emergency room today, chest x-ray was unremarkable. CT angiogram chest was negative for pulmonary embolism. Patient has small hiatal hernia features suggestive of mild esophageal reflux. Urinalysis was unremarkable. UDS was positive for marijuana opiates. Patient has history of smoking 1/3 rd pack a day x 7 years. Also smokes [employer] anisa. Denies alcohol abuse. Works as [employer]. Not . Has no children. Allergic to haloperidol. Patient continued to have progressive chest pain while in the emergency room. He became diaphoretic and was in sinus tachycardia. Patient subsequently switched to nitroglycerin drip. Patient is in deep sleep. Not responding to verbal stimuli. Patient is on room air. O2 saturation 96%. No acute respiratory distress. Patient afebrile. Has leukocytosis. Blood pressure 151/103, Pulse 89, Respir ations 28.. Patients Tropinin, lipase. tsh levels normal. Patients HGB 17.4 , elevated likely from dehydration from nausea , vomiting. Chest xray obtained 05/16/22 reported No significant pulmonary or pleural abnormality. No pneumothorax. Angio CT of chest 05/16/[address] evidence for PTE, or acute aortic abnormality. Small hiatal hernia with features supportive of mild esophageal reflux. Small volume soft tissue density anterior superior mediastinum most likely reflective of a small component of residual thymus, mild nonspecific lymphadenopathy secondarily considered. Patient is on Hydrazine and Diovan. - Patient Problems (1) Nausea and vomiting Current Visit: Yes Status: Acute Plan to address problem: Management as per primary care. (2) Atypical chest pain Current Visit: Yes Status: Acute Plan to address problem: Management as per cardiology. (3) Hypertensive urgency Current Visit: Yes Status: Acute Plan to address problem: Patient is on hydralazine and Diovan. Management as per [facility] care. (4) Esophageal reflux Current Visit: Yes Status: Acute Plan to address problem: CT of chest reported small hiatal hernia and mild esophageal reflux. Recommend proton pump inhibitor like prilosec. (5) Marijuana abuse Current Visit: Yes Status: Acute Plan to address problem: Urine drug screen positive for Marijuana and Opioids. Counseled stop using those drugs. Management as per primary care. Subjective Date of service: 05/18/22 Principal diagnosis: Hypertensive Urgency Interval history: 31-year-old -Micronesian male with no significant past medical history presenting to the emergency room today complaining of chest pain. Chest pain is said to be substernal and sharp. He has had associated nausea and vomiting and occasional diarrhea over the past few days. Patient denies any headache or dizziness. Has been diaphoretic. Denies any fever or chills, denies any hematuria or dysuria. Patient denies any illicit drug use. Upon arrival in the emergency room patient was found to be diaphoretic and actively vomiting. Blood pressure was found to be elevated with systolic in the 200s and diastolic in the low 100s. Patient was therefore placed on Cardene drip. Work-up in the emergency room today, chest x-ray was unremarkable. CT angiogram chest was negative for pulmonary embolism. Patient has small hiatal hernia features suggestive of mild esophageal reflux. Urinalysis was unremarkable. UDS was positive for marijuana opiates. Patient has history of smoking 1/3 rd pack a day x 7 years. Also smokes Marijuana. Denies alcohol abuse. Works as [employer]. Not . Has no children. Allergic to haloperidol. Patient continued to have progressive chest pain while in the emergency room. He became diaphoretic and was in sinus tachycardia. Patient subsequently switched to nitroglycerin drip. Patient is in deep sleep. Not responding to verbal stimuli. Patient is on room air. O2 saturation 96%. No acute respiratory distress. Patient afebrile. Has leukocytosis. Blood pressure 151/103, Pulse 89, Respirations 28.. Patients Tropinin, lipase. tsh levels normal. Patients HGB 17.4 , elevated likely from dehydration from nausea , vomiting. Chest xray obtained 05/16/22 reported No significant pulmonary or pleural abnormality. No pneumothorax. Angio CT of chest 05/16/[address] evidence for PTE, or acute aortic abnormality. Small hiatal hernia with features supportive of mild esophageal reflux. Small volume soft tissue density anterior superior mediastinum most likely reflective of a small component of residual thymus, mild nonspecific lymphadenopathy secondarily considered. Patient is on Hydrazine and Diovan. Objective Vital Signs - 12hr 05/18/22 05/18/22 05/18/22 01:16 01:30 01:46 Pulse Rate 78 88 84 Respiratory 14 18 25 H Rate Blood Pressure 176/123 163/121 163/121 Blood Pressure [Left] O2 Sat by Pulse 94 97 89 Oximetry 05/18/22 05/18/22 05/18/22 02:00 02:16 02:30 Pulse Rate 82 72 80 Respiratory 26 H 25 H 22 Rate Blood Pressure 163/121 153/103 153/103 Blood Pressure [Left] O2 Sat by Pulse 89 94 92 Oximetry 05/18/22 05/18/22 05/18/22 02:46 03:00 03:16 Pulse Rate 73 80 80 Respiratory 14 21 26 H Rate Blood Pressure 153/103 153/103 153/103 Blood Pressure [Left] O2 Sat by Pulse 93 93 93 Oximetry 05/18/22 05/18/22 05/18/22 03:30 03:46 04:00 Pulse Rate 82 88 81 Respiratory 23 13 24 Rate Blood Pressure 153/103 153/103 153/103 Blood Pressure [Left] O2 Sat by Pulse 91 97 90 Oximetry 05/18/22 05/18/22 05/18/22 04:16 04:30 04:46 Pulse Rate 77 82 83 Respiratory 12 22 16 Rate Blood Pressure 153/103 153/103 153/103 Blood Pressure [Left] O2 Sat by Pulse 90 90 89 Oximetry 05/18/22 05/18/22 05/18/22 05:00 05:16 05:30 Pulse Rate 83 Respiratory 21 Rate Blood Pressure 153/103 187/124 187/124 Blood Pressure [Left] O2 Sat by Pulse 92 94 92 Oximetry 05/18/22 05/18/22 05/18/22 05:46 06:00 06:16 Pulse Rate Respiratory Rate Blood Pressure 187/124 187/124 187/124 Blood Pressure [Left] O2 Sat by Pulse 91 92 89 Oximetry 05/18/22 05/18/22 05/18/22 06:30 06:46 07:00 Pulse Rate 73 85 83 Respiratory 26 H 23 13 Rate Blood Pressure 138/96 151/93 151/111 Blood Pressure [Left] O2 Sat by Pulse 92 90 93 Oximetry 05/18/22 05/18/22 05/18/22 07:16 07:30 07:45 Pulse Rate 85 98 H 81 Respiratory 19 28 H 24 Rate Blood Pressure 142/98 172/114 149/106 Blood Pressure [Left] O2 Sat by Pulse 90 93 98 Oximetry 05/18/22 05/18/22 05/18/22 08:00 08:16 08:20 Pulse Rate 89 Respiratory 18 13 17 Rate Blood Pressure 139/103 152/104 Blood Pressure 152/104 [Left] O2 Sat by Pulse 92 95 95 Oximetry 05/18/22 05/18/22 05/18/22 08:30 08:46 09:00 Pulse Rate Respiratory 18 Rate Blood Pressure 152/104 138/97 138/97 Blood Pressure [Left] O2 Sat by Pulse 96 89 95 Oximetry 05/18/22 05/18/22 05/18/22 09:16 09:30 09:46 Pulse Rate Respiratory Rate Blood Pressure 138/97 138/97 138/97 Blood Pressure [Left] O2 Sat by Pulse 92 95 94 Oximetry 05/18/22 05/18/22 05/18/22 10:00 10:16 10:30 Pulse Rate Respiratory Rate Blood Pressure 156/97 156/97 156/97 Blood Pressure [Left] O2 Sat by Pulse 93 88 97 Oximetry 05/18/22 05/18/22 05/18/22 10:46 11:00 11:16 Pulse Rate Respiratory Rate Blood Pressure 151/103 151/103 151/103 Blood Pressure [Left] O2 Sat by Pulse 94 93 93 Oximetry 05/18/22 05/18/22 05/18/22 11:30 11:46 12:00 Pulse Rate Respiratory Rate Blood Pressure 151/103 168/121 151/103 Blood Pressure [Left] O2 Sat by Pulse 96 95 96 Oximetry 05/18/22 12:16 Pulse Rate Respiratory Rate Blood Pressure 151/103 Blood Pressure [Left] O2 Sat by Pulse 96 Oximetry Constitutional: no acute distress, asleep, other (Sleeping. No acute respiratory distress.) Eyes: non-icteric ENT: oropharynx moist Neck: supple, no JVD Ascultation: Bilateral: clear Cardiovascular: regular rate and rhythm Gastrointestinal: normoactive bowel sounds, soft, tender Integumentary: normal Extremities: no cyanosis, no edema Neurologic: normal mental status, non-focal exam, pupils equal and round, CN II- XII normal Psychiatric: depressed CBC and BMP: 05/19/22 05:37 05/19/22 05:37 ABG, PT/INR, D-dimer: PT/INR, D-dimer PT 13.0 Sec. (12.2-14.9) 05/16/22 17:25 INR 0.89 (0.87-1.13) 05/16/22 17:25 Abnormal lab findings: Abnormal Labs 05/16/22 05/16/22 05/16/22 16:51 17:25 17:25 WBC RBC 5.96 H Hgb 16.8 H Hct 53.0 H Lymph % (Auto) 8.9 L Lymph # (Auto) 0.8 L Seg Neutrophils % 87.7 H Seg Neuts % (Manual) Lymphocytes % (Manual) Monocytes % (Manual) Seg Neutrophils # 7.8 H Seg Neutrophils # Man Lymphocytes # (Manual) Monocytes # (Manual) Chloride Glucose 151 H POC Glucose 154 H Calcium 10.5 H Total Protein 8.3 H Albumin 5.7 H 05/16/22 05/17/22 05/17/22 23:36 05:25 05:25 WBC 12.6 H RBC 5.83 H Hgb 16.3 H Hct 51.2 H Lymph % (Auto) Lymph # (Auto) Seg Neutrophils % Seg Neuts % (Manual) 84.0 H Lymphocytes % (Manual) 4.0 L Monocytes % (Manual) 12.0 H Seg Neutrophils # Seg Neutrophils # Man 10.6 H Lymphocytes # (Manual) 0.5 L Monocytes # (Manual) 1.5 H Chloride Glucose 130 H 122 H POC Glucose Calcium Total Protein Albumin 05/18/22 05/18/22 05:22 05:22 WBC 15.1 H RBC 6.26 H Hgb 17.4 H Hct 54.8 H Lymph % (Auto) Lymph # (Auto) Seg Neutrophils % Seg Neuts % (Manual) Lymphocytes % (Manual) Monocytes % (Manual) Seg Neutrophils # Seg Neutrophils # Man Lymphocytes # (Manual) Monocytes # (Manual) Chloride 94.8 L Glucose 108 H POC Glucose Calcium Total Protein Albumin
[2022-05-18] MEDS: MORPHINE 2 MG/1 ML INJ IV PRN ×2 (13:38→22:04)
[2022-05-18] MEDS ORDERED: amLODIPine 10 MG TAB PO SCH (16:00)
[2022-05-18] MEDS: hydrALAZINE 25 MG TAB PO SCH ×2 (17:43→21:27)
[2022-05-18 18:04] LABS: ABG Base Excess 1.9 mmol/L (-2.0-3.0); ABG HCO3 25.7 mmol/L (20.0-26.0); ABG Methemoglobin 0.6 % (0.0-1.5); ABG Oxygen Saturation 95.7 % (95.0-99.0); ABG PCO2 38.1 mm Hg; ABG PH 7.447 pH Units (7.350-7.450); ABG PO2 71.2 mm Hg (80.0-90.0)
[2022-05-19] MEDS: hydrALAZINE 25 MG TAB PO SCH (05:47)
[2022-05-19] MEDS: METOPROLOL TARTRATE 50 MG TAB PO SCH (05:47)
[2022-05-19 06:21] LABS: Hematocrit 59.2 % (35.5-45.6); Hemoglobin 18.8 gm/dl (11.8-15.2); Mean Corpuscular HGB Conc 32 % (32-34); Mean Corpuscular Volume 88 fl (84-94); Platelet Count 302 K/mm3 (140-440); Red Blood Count 6.71 M/mm3 (3.65-5.03); Red Cell Distribution Width 14.6 % (13.2-15.2)
[2022-05-19 07:38] LABS: BUN/Creatinine Ratio 24; Blood Urea Nitrogen 22 mg/dL (9-20); Hemolysis Index 49
--- NOTE | 2022-05-19 10:00 | Discharge Summary ---
Providers - Providers Date of Admission: 05/16/22 21:56 Attending physician: ROGER MARIN MD 05/16/22 Consult to Cardiac Rehabilitation [CONS] Routine Reason For Exam: Phase I 05/16/22 21:54 Consult to Physician [CONS] Urgent Comment: Consulting Provider: SANTIAGO TORRES Physician Instructions: Reason For Exam: htn emergency 05/16/22 22:58 Consult to Cardiology [CONS] Routine Consulting Provider: RADHA ANDREA Reason For Exam: Chest Pain Consult to Dietitian/Nutrition [CONS] Routine Physician Instructions: Reason For Exam: Reason for Consult: Diet education Primary care physician: SERVANDO GREENBERG Hospitalization Reason for admission: Hypertensive urgency Condition: Stable Hospital course: 31-year-old -Greenlandic male with no significant past medical history presenting to the emergency room today complaining of chest pain. Chest pain is said to be substernal and sharp. He has had associated nausea and vomiting and occasional diarrhea over the past few days. Patient denies any headache or dizziness. Has been diaphoretic. Denies any fever or chills, denies any hematuria or dysuria. Patient denies any illicit drug use. Upon arrival in the emergency room patient was found to be diaphoretic and actively vomiting. Blood pressure was found to be elevated with systolic in the 200s and diastolic in the low 100s. Patient was therefore placed on Cardene drip. Work-up in the emergency room today, chest x-ray was unremarkable. CT angiogram chest was negative for pulmonary embolism. Patient has small hiatal hernia features suggestive of mild esophageal reflux. Urinalysis was unremarkable. UDS was positive for marijuana opiates. Patient continued to have progressive chest pain while in the emergency room. He became diaphoretic and was in sinus tachycardia. Patient subsequently switched to nitroglycerin drip. Past History Past Medical History: No medical history Past Surgical History: No surgical history Social history: no significant social history Family history: no significant family history 05/17: Patient seen and examined this morning still with chest discomfort nonreproducible. Troponins are negative. I have initiated him on beta-laina and valsartan and discussed with nursing staff to see if we can wean him off the nitroglycerin which at this time is not truly helping with his blood pressure. He is not diaphoretic anymore. He does not have any nausea or vomiting at this time. No headache at this time. Compliance with doctor visits and management has been discussed with him. He denies any family history of premature cardiac . I will check a TSH and echocardiogram. While awaiting cardiology evaluation. Also provided counseling on substance abuse and on tobacco cessation therapy. 05/18: Made some slight adjustments to his medication to be able to get him off the nitro drip, We placed him chlorthalidone, continue his beta-laina, continue the valsartan. I have asked for repeat EKG as I do not see his previous EKG. I reemphasized tobacco cessation who verbalized understanding TSH reviewed normal, will await echo read. Patient can be downgraded to the medical floor telemetry 05/19: Patient's blood pressure this morning is improved discussed with cardiology will discharge on current medication setting COVID titrated outpatient. I gave the patient extensive counseling on need to monitor his blood pressure and follow-up with his regular doctors. Chest pain is atypical related to the hypertensive urgency. Any ischemic work-up will continue outpatient if return of chest pain he is currently chest pain-free. EKG was unremarkable and no elevated troponin 1. Atypical chest pain secondary to hypertension 2. Hypertensive emergency with subsequent chest discomfort 3. Nausea and vomiting-possibly secondary to acid reflux 4. Tobacco/marijuana use disorder 5. Anemia/leukocytosis 6. Headache Disposition: 01 HOME / SELF CARE / HOMELESS Final Discharge Diagnosis (Prints w/discharge instructions): 1. Atypical chest pain secondary to hypertension. 2. Hypertensive emergency with subsequent chest discomfort. 3. Nausea and vomiting-possibly secondary to acid reflux. 4. Tobacco/marijuana use disorder. 5. Anemia/leukocytosis. 6. Headache Time spent for discharge: 35-minute Core Measure Documentation - Palliative Care Palliative Care/ Comfort Measures: Not Applicable - Core Measures Any of the following diagnoses?: none Exam - Physical Exam Narrative exam: VITAL SIGNS: Reviewed. GENERAL: The patient appears normally developed, obese vital signs as documented. HEAD: No signs of head trauma. EYES: Pupils are equal. Extraocular motions intact. EARS: Hearing grossly intact. MOUTH: Oropharynx is normal. NECK: No adenopathy, no JVD. CHEST: Chest with clear breath sounds bilaterally. No wheezes, rales, or rhonchi. CARDIAC: Regular rate and rhythm. S1 and S2, without murmurs, gallops, or rubs. VASCULAR: No Edema. Peripheral pulses normal and equal in all extremities. ABDOMEN: Soft, non tender and non distended. No rebound or guarding, and no masses palpated. Bowel Sounds normal. MUSCULOSKELETAL: Good range of motion of all major joints. Extremities without clubbing, cyanosis or edema. NEUROLOGIC EXAM: Alert and oriented x 3 No focal sensory or strength deficits. Speech normal. Follows commands. PSYCHIATRIC: Mood normal. SKIN: detail exam as documented in skin assessment - Constitutional Vitals: Temp Pulse Resp BP Pulse Ox 98.5 F 78 18 130/83 97 05/19/22 08:32 05/19/22 08:32 05/19/22 08:32 05/19/22 08:32 05/19/22 08:32 Plan Activity: advance as tolerated, fall precautions Diet: low salt Special Instructions: record daily weights, record daily BP diary, smoking cessation Follow up with: SERVANDO GREENBERG MD [Primary Care Provider] - 7 Days Prescriptions: Valsartan [Diovan] 160 mg PO BID #60 tablet Hydralazine HCl 50 mg PO BID #60 tab Metoprolol [Lopressor TAB] 50 mg PO BID #60 tablet Chlorthalidone [Thalitone] 25 mg PO QDAY #30 tablet Ondansetron [Zofran Odt] 4 mg PO Q8HR #60 tab.rapdis
[2022-05-19] MEDS: ASPIRIN EC 325 MG TAB PO SCH (12:04)
[2022-05-19] MEDS: VALSARTAN 160MG TAB PO SCH (12:04)
[2022-05-19] MEDS: PANTOPRAZOLE 40 MG INJ IV SCH (12:05)
[2022-05-19 12:33] VITALS: BP 130/89
[2022-05-19] MEDS: CHLORTHALIDONE 25 MG TAB PO SCH (13:00)
--- NOTE | 2022-05-19 13:08 | Progress Note ---
Assessment and Plan Atypical Chest Pain Hypertensive Urgency Leukocytosis Nausea/Vomiting GERD Obesity Medical Non-Compliance EtOH Use Tobacco Use Marijuana Use Echo 05/2022 - EF 65%, mild LVH, no significant valvular abnormalities Treadmill stress test 05/2020 - negative for ischemia Plan: Chest pain is atypical. Tn neg x 3. ECG reveals no acute ischemic changes. Echo reviewed - LVEF 65%, borderline LVH, no WMAs, no significant valvular abnormalities. No indication for inpatient ischemic evaluation at this time. Continue to optimize antihypertensive regimen. Otherwise stable cardiac status. Patient should follow-up with the [facility] for further management patient may also follow-up with our group, [facility] data review specialist, in 1 to 2 weeks after discharge. Phone #[phone] Pt seen in conjunction with Dr. Lassiter, who agrees with the assessment and plan of care. - Patient Problems (1) Tobacco abuse Current Visit: Yes Status: Acute (2) Leukocytosis Current Visit: Yes Status: Acute (3) Non-compliance Current Visit: Yes Status: Acute (4) Atypical chest pain Current Visit: Yes Status: Acute (5) GERD (gastroesophageal reflux disease) Current Visit: Yes Status: Acute (6) Nausea and vomiting Current Visit: Yes Status: Acute Subjective Date of service: 05/19/22 Principal diagnosis: Hypertensive Urgency Interval history: Patient resting in bed in no acute distress Patient was sinus 70s on monitors with no events Objective Vital Signs Temp Pulse Resp BP Pulse Ox 05/19/22 12:04 89 05/19/22 11:23 98.3 F 71 18 130/89 97 05/19/22 08:32 98.5 F 78 18 130/83 97 05/19/22 05:47 70 136/96 05/19/22 03:31 98.0 F 70 16 136/96 95 05/18/22 22:41 98.7 F 71 18 134/86 96 05/18/22 22:00 88 05/18/22 21:27 76 144/92 05/18/22 21:26 76 144/92 05/18/22 19:49 18 96 05/18/22 18:50 99.0 F 76 16 144/92 96 - Physical Examination General: No Apparent Distress HEENT: Positive: EOMI, Normocephaly Neck: Negative: JVD/HJR Cardiac: Positive: Reg Rate and Rhythm Lungs: Positive: Normal Breath Sounds Neuro: Positive: Grossly Intact Abdomen: Positive: Soft Skin: Negative: Rash Musculoskeletal: No Pain Extremities: Present: warm. Absent: edema - Labs and Meds CBC 05/19/22 Range/Units 05:37 WBC 11.8 H (4.5-11.0) K/mm3 RBC 6.71 H (3.65-5.03) M/mm3 Hgb 18.8 H (11.8-15.2) gm/dl Hct 59.2 H (35.5-45.6) % Plt Count 302 (140-440) K/mm3 Comprehensive Metabolic Panel 05/19/22 Range/Units 05:37 Sodium 135 L (137-145) mmol/L Potassium 4.5 (3.6-5.0) mmol/L Chloride 91.8 L (98-107) mmol/L Carbon Dioxide 23 (22-30) mmol/L BUN 22 H (9-20) mg/dL Creatinine 0.9 (0.8-1.3) mg/dL Glucose 83 (75-100) mg/dL Calcium 10.0 (8.4-10.2) mg/dL - Imaging and Cardiology EKG: report reviewed, image reviewed Echo: report reviewed - Telemetry EKG Rhythm: Sinus Rhythm - EKG Sinus rhythms and dysrhythmias: sinus rhythm
--- NOTE | 2022-05-21 13:54 | Electrocardiograph Report ---
[facility] Test Date: 2022-05-16 Test Time: 18:13:23 Pat Name: DAVID MARQUEZ Department: Room: A483 Gender: M Topographic Computator: 911 : 1990 Requested By: GHAZAL ROLDAN Order Number: [id number] Reading MD: Zahra Sheets Measurements Intervals [place] Rate: 76 P: 24 MA: 176 QRS: 16 QRSD: 89 T: 52 QT: 380 QTc: 428 Interpretive Statements Sinus rhythm No previous ECG available for comparison Electronically Signed On 05-21-2022 13:54:14 EDT by Zahra Sheets
--- NOTE | 2022-05-21 13:56 | Electrocardiograph Report ---
[facility] Test Date: 2022-05-17 Test Time: 00:44:18 Pat Name: DAVID MARQUEZ Department: Room: A483 Gender: M Civil Celebrant: TONJA : 1990 Requested By: CLARA LAZO Order Number: [id number] Reading MD: Zahra Sheets Measurements Intervals [place] Rate: 133 P: 47 [place]: 153 QRS: 19 QRSD: 78 T: 43 QT: 286 QTc: 425 Interpretive Statements Sinus tachycardia LAE, consider biatrial enlargement Compared to ECG 05/16/2022 18:13:23 Sinus rate has increased by 67 bpm Electronically Signed On 05-21-2022 13:56:26 EDT by Zahra Sheets
--- NOTE | 2022-05-21 13:59 | Electrocardiograph Report ---
[facility] Test Date: 2022-05-17 Test Time: 13:13:37 Pat Name: DAVID MARQUEZ Department: Room: A483 Gender: M Web Manager: trinh : 1990 Requested By: CLARA LAZO Order Number: [id number] Reading MD: Zahra Sheets Measurements Intervals [place] Rate: 81 P: 41 DE: 170 QRS: 33 QRSD: 93 T: 42 QT: 383 QTc: 445 Interpretive Statements Sinus rhythm No previous ECG available for comparison Electronically Signed On 05-21-2022 13:59:25 EDT by Zahra Sheets
== END 2022-05-19 13:52 | disposition home or self-care (01) | DRG 305 ==
LOC: EDBD → ED 16:40 → CC1 21:56 → 4A 05-17 15:59 → CC1 05-17 16:52 → 4A 05-18 12:19
PROVIDERS: ADMIT Internal Medicine Geriatric Medicine; ATTEND Internal Medicine
PROC: 4A033R1 Measurement of Arterial Saturation, Peripheral, Percutaneous Approach (ICD-10-PCS; principal; 2022-05-18)
DX: I16.1 Hypertensive emergency (principal); D64.9 Anemia, unspecified; K44.9 Diaphragmatic hernia without obstruction or gangrene; K21.9 Gastro-esophageal reflux disease without esophagitis; F12.10 Cannabis abuse, uncomplicated; D72.829 Elevated white blood cell count, unspecified; Z91.19 Patient's noncompliance with other medical treatment and regimen; Z72.89 Other problems related to lifestyle; Z72.0 Tobacco use; Z88.8 Allergy status to other drugs, medicaments and biological substances
CPT/HCPCS: 36415; 36600; 71046; 71275; 74177; 80048; 80053; 80307; 81001; 82803; 82962; 83690; 84443; 84484; 85007; 85025; 85027; 85610; 85730; 93005; 93306; 96374; 96375; 96376; 99291; G0378; J3490; C8929; C9113; J2270; J2405; J7030; J7040; J7050; Q9967